=== PATIENT | male | born 1950 | race Caucasian/White ===

== ENCOUNTER 2024-02-01 01:29 | Inpatient (IN) ==
--- NOTE | 2024-02-01 02:11 | Emergency Department Note ---
Impression & Plan Chest pain, Elevated troponin, NSTEMI (non-ST elevated myocardial infarction) ED Provider Note ED Provider Note NAME: GRETCHEN JC AGE:73 SEX: Male : 1950 ARRIVES VIA: private vehicle INFORMANT: Patient ED PROVIDER(s): Mally Rivas DO CHIEF COMPLAINT: Chest tightness HPI: This is a 73-year-old male presents emergency department due to concern for chest tightness which began this evening between 7 and 730. He states he feels a sense of tightness across the chest radiating up into the left side of the neck and jaw as well as down the left upper extremity. No radiation into the back. He states he was slightly nauseated and did feel short of breath. He states he feels better laying down, worse sitting up, although did not notice any significant worsening pain with ambulation or movement. He denies any recent change in activity, recent illness or URI symptoms, fevers or chills. No recent change in any medications. No history of heart or lung problems. No prior similar episodes of pain. No other treatment at home prior to arrival. He denies any recent increased GERD/heartburn type symptoms. Patient states 2 [address] they [address] drive to [place] although states he and family stopped frequently for bathroom breaks and to get gas. PAST MEDICAL HISTORY:See Below PAST SURGICAL HISTORY:See Below FAMILY HISTORY:See Below SOCIAL HISTORY:See Below HOME MEDICATIONS:See Below ALLERGIES:See Below VITALS:See Below PHYSICAL EXAMINATION: GENERAL: alert, well appearing, well nourished, no distress, non-toxic EYE EXAM: normal conjunctiva, PERRL and EOM's grossly intact OROPHARYNX: no exudate, no erythema, lips, buccal mucosa, and tongue normal and mucous membranes are moist NECK: supple, no nuchal rigidity, no adenopathy, non-tender LUNGS: Clear to auscultation. Normal chest wall mechanics, no w/r/r HEART: no murmurs, S1 normal and S2 normal, no reproducible pain with palpation ABDOMEN: abdomen soft, non-tender, normo-active bowel sounds, no masses, no rebound or guarding. SKIN: no rashes, petechiae, orbruising UPPER EXTREMITIES: upper extremities are grossly normal. FROM, nml pulses b/l. LOWER EXTREMITIES: No pitting edema. FROM, nml pulses b/l. Negative Homans' sign. NEURO EXAM: Normal sensorium, cranial nerves II-XII grossly intact, normal speech, no facial droop,nogross weakness of arms, no gross weakness of legs. Gross sensation intact. No ataxia. Vital Signs: reviewed and remarkable Differential Diagnosis: acute coronary syndrome, pericarditis, pulmonary embolus, aortic dissection, pneumonia, pneumothorax, musculoskeletal pain, shingles, GERD, GI bleed, as well as others were considered MEDICAL DECISION MAKING: This is a 73 yo male who presents to the ER with concern for chest pain. No prior similar episodes and no hx of heart problems. He was afebrile and VS stable. Labs drawn and sent, IV established, EKG and CXR performed and interpreted at bedside, and patient placed on telemetry. He was given gentle IVF, nitropaste, IV zofran, IV tyenol and reported improvement but lingering sense of tightness. IV morphine aded. INitial troponin mildly elevated. Other labs reassuring. No acute EKG changes and no findings on CXR. Given concern for symptoms and presentation, we discussed additional inpatient evaluation and he was agreeable. Case discussed with the hospitalist for additional evaluation and mgmt. Repeat troponin pending at the time of our discussion. I do not suspect occult infectious etiology at this time. I do not suspect acute vascular emergency. Consultation(s): 0440: Discussed with Dr. Momin for additional evaluation and mgmt. Repeat troponin pending at time of discussion. ER Treatment Provided: See below Diagnostics Interpreted By Me: -ECG: Normal sinus at 70, first-degree AV block, normal axis, normal intervals, no acute ST/T wave changes -Cardiac Monitoring: An order was placed for continuous cardiac monitoring. The monitor shows a rate of 70 with normal sinus rhythm. -Laboratory studies: As stated above and show below. -Imaging studies: X-ray Chest: A single view study of the chest was reviewed and was negative for cardiomegaly, focal infiltrate, effusion, pulmonary edema, or wide mediastinum. Triage Nursing Note Reviewed Prior/Outside Records Reviewed Past Med/Surg History Problem List (Updated 02/02/24 @ 02:41 by Mally Rivas DO) Single kidney NSTEMI (non-ST elevated myocardial infarction) (Acute) Elevated troponin (Acute) Chest pain (Acute) Carpal tunnel syndrome on both sides Social History Smoking Status: Never smoker Hx Alcohol Use: No Hx Substance Use: No Preferred Language: Arabic Communication Ability: Effective Art Professor Required: No Beliefs That Will Affect Care: None Current Living Situation: Spouse Other Information That Helps Us Care for You: No Feels Safe at Home: Yes Safety Concerns: Feels Safe At This Time Assistive Devices: None Allergies Allergies Allergy/AdvReac Type Severity Reaction Status Date / Time Penicillins AdvReac Anaphylaxis Verified 02/01/24 02:19 Home Meds Home Medications Medication Instructions Recorded Confirmed acetaminophen 500 mg tablet 500 mg PO AMHS 02/01/24 02/01/24 flaxseed oil 1,000 mg capsule 1,000 mg PO AMPM 02/01/24 02/01/24 multivitamin 1 tab PO DAILY 02/01/24 02/01/24 omega 4-oes-ddh-fish oil 1,000 mg 1 cap PO AMPM 02/01/24 02/01/24 (120 mg-180 mg) capsule (Fish Oil) Results & Data (ED) Vital Signs Vital Signs - 24 hr 02/01/24 03:06 02/01/24 04:00 02/01/24 04:36 Pulse Rate 63 54 L 66 Pulse Rate from SpO2 Sensor 64 55 L 65 Respiratory Rate 12 15 17 Blood Pressure 127/78 119/70 131/82 Blood Pressure Mean 94 86 98 Pulse Oximetry 95 93 94 Oxygen Delivery Method Room Air Room Air Laboratory Data 02/02/24 01:10 02/02/24 01:10 Lab Results 02/01/24 02/01/24 Range/Units 02:08 03:52 WBC 4.62 L (4.8-10.8) K/ul RBC 5.10 (4.70-6.10) M/uL Hgb 14.9 (14.0-18.0) g/dl Hct 42.7 (42.0-52.0) % MCV 83.7 (80.0-100.0) fL MCH 29.2 (25.0-34.0) pg MCHC 34.9 (32.0-36.0) g/dL RDW Std Deviation 40.2 (36.4-46.3) fL RDW Coeff of Barbara 13.2 (11.5-14.5) % Plt Count 213 (130-400) K/uL MPV 9.0 L (9.4-12.4) fL Immature Gran % (Auto) 0.4 % Neut % (Auto) 51.8 % Lymph % (Auto) 36.6 % [place] % (Auto) 8.0 % Eos % (Auto) 2.6 % Baso % (Auto) 0.6 % Neut # (Auto) 2.39 (1.40-6.50) K/uL Lymph # (Auto) 1.69 (1.20-3.40) K/uL [place] # (Auto) 0.37 (0.11-0.59) K/uL Eos # (Auto) 0.12 (0.00-0.50) K/uL Baso # (Auto) 0.03 (0.00-0.20) K/uL Immature Gran # (Auto) 0.02 (0.01-0.20) K/uL APTT 27 (21-31) Seconds PTT Ratio 1.0 D-Dimer 370 (0-500) ug/L FEU Sodium 138 (136-145) mmol/L Potassium 4.0 (3.5-5.1) mmol/L Chloride 107 (98-107) mmol/L Carbon Dioxide 23 (21-32) mmol/L Anion Gap 8 (3-11) BUN 28 H (6-23) mg/dl Creatinine 1.47 H (0.6-1.4) mg/dl Est Cr Clr Drug Dosing 55.1 ml/min eGFR 50.05 BUN/Creatinine Ratio 19.0 (10-20) Glucose 106 H (70-99(Fasting)) mg/dl Calcium 9.1 (8.6-10.3) mg/dl Magnesium 1.6 L (1.7-2.4) mg/dl Total Bilirubin 0.6 (0.2-1.0) mg/dl AST 21 (13-39) U/L ALT 16 (7-52) U/L Alkaline Phosphatase 31 L (34-104) U/L Troponin I High Sens 35.7 H 395.3 H* D (0-20) pg/ml Total Protein 6.3 (6.0-8.3) gm/dl Albumin 3.9 (3.4-5.0) gm/dl Globulin 2.4 L (2.5-4.0) gm/dl Albumin/Globulin Ratio 1.6 (0.9-2) Lipase 83 H (11-82) U/L TSH 2.267 (0.300-4.500) uIu/ml Administered Medications Acetaminophen (Acetaminophen 325 Mg Tab) 650 mg PO QID PRN PRN Reason: pain/fever Stop: 03/02/24 05:21 Last Admin: 02/01/24 20:16 Dose: 650 mg Documented By: TRAVIS Atorvastatin Calcium (Atorvastatin 40 Mg Tab) 40 mg PO QAM [facility] Stop: 03/02/24 05:24 Last Admin: 02/01/24 08:07 Dose: 40 mg Documented By: JOSE F Heparin Sodium/Dextrose (Heparin Sodium/Dextrose) 25,000 units in 500 mls @ 0 mls/hr IV .Q0M [facility]; Protocol Stop: 03/02/24 05:14 Last Titration: 02/02/24 02:19 Dose: 0 units/hr, 0 mls/hr Documented By: TRAVIS Co-signed By: [id number] Admin: 02/01/24 21:38 Dose: 1,550 units/hr, 31 mls/hr Documented By: TRAVIS Co-signed By: SARAH BETH Titration: 02/01/24 21:38 Dose: Infused Documented By: TRAVIS Co-signed By: MMD Titration: 02/01/24 18:58 Dose: 1,550 units/hr, 31 mls/hr Documented By: JOSE F Co-signed By: TRAVIS Titration: 02/01/24 13:37 Dose: 1,550 units/hr, 31 mls/hr Documented By: JOSE F Co-signed By: GG Titration: 02/01/24 06:37 Dose: 1,550 units/hr, 31 mls/hr Documented By: TRAVIS Co-signed By: KRT Admin: 02/01/24 05:59 Dose: 1,550 units/hr, 31 mls/hr Documented By: MARCELINO Co-signed By: SHANAE Metoprolol Tartrate (Metoprolol Tartrate 25 Mg Tab) 12.5 mg PO BID HARRIET Stop: 03/02/24 20:59 Last Admin: 02/01/24 20:11 Dose: 12.5 mg Documented By: TRAVIS Discontinued Medications Aspirin (Aspirin 81 Mg Ectab) 81 mg PO NOW STA Stop: 02/01/24 04:47 Last Admin: 02/01/24 05:31 Dose: 81 mg Documented By: MARCELINO Heparin Sodium/Dextrose (Heparin Iv Adult Wt-Based Standard *No* Initial Bolus Protocol) 1 each IV ONE STA; Protocol Stop: 02/01/24 04:48 Last Admin: 02/01/24 06:37 Dose: Not Given Documented By: TRAVIS Acetaminophen (Ofirmev) 1,000 mg in 100 mls @ 400 mls/hr IV NOW STA Stop: 02/01/24 02:19 Last Infusion: 02/01/24 03:59 Dose: Infused Documented By: Admin: 02/01/24 02:20 Dose: 400 mls/hr Documented By: MARCELINO Sodium Chloride (Nss) 1,000 mls @ 75 mls/hr IV .[id number] STA Stop: 02/01/24 18:15 Last Infusion: 02/01/24 15:17 Dose: Infused Documented By: JOSE F Admin: 02/01/24 06:46 Dose: 75 mls/hr Documented By: TRAVIS Metoprolol Tartrate (Metoprolol Tartrate 25 Mg Tab) 12.5 mg PO NOW STA Stop: 02/01/24 04:48 Last Admin: 02/01/24 05:57 Dose: Not Given Documented By: MARCELINO Morphine Sulfate (Morphine Sulfate 2 Mg/Ml Carp) 2 mg IV NOW STA Stop: 02/01/24 04:38 Last Admin: 02/01/24 04:56 Dose: 2 mg Documented By: MARCELINO Nitroglycerin (Nitroglycerin 2% Ointment 30gm Tube) 1 inch EXT NOW STA Stop: 02/01/24 02:06 Last Admin: 02/01/24 02:25 Dose: 1 inch Documented By: MARCELINO Ondansetron HCl (Ondansetron Inj 2 Mg/Ml 2 Ml Vial) 4 mg IV NOW STA Stop: 02/01/24 02:06 Last Admin: 02/01/24 02:20 Dose: 4 mg Documented By: MARCELINO Imaging Data Radiologist's Impression: Chest X-Ray 02/01/24 02:05 EXAM: XR chest 1V portable CLINICAL HISTORY: CHEST PAIN F TECHNIQUE: Portable radiograph of chest was acquired. COMPARISON: None. FINDINGS: The lungs are clear and well-expanded with no pulmonary infiltrate or pleural effusion. The cardiomediastinal silhouette is within normal limits. No acute osseous abnormality. Chest wall leads are noted. IMPRESSION: 1. No acute cardiopulmonary disease Electronically signed by Hector Connor 02-01-2024 03:53 AM Discharge Plan Visit Data Chief Complaint: Chest Pain Stated Complaint: CHEST PAIN INTO LT ARM ED Provider: Mally Rivas Discharge Problem: Chest pain, Elevated troponin, NSTEMI (non-ST elevated myocardial infarction) Patient Disposition: Admitted As Inpatient Discharge Instructions Interventions: ED Discharge Assessment Last Done: 02/01/24 05:50
[2024-02-01] MEDS: ONDANSETRON INJ 2 MG/ML 2 ML VIAL IV STA (02:20)
[2024-02-01] MEDS: ACETAMINOPHEN 1,000 MG/100 ML VIAL IV STA (02:20)
[2024-02-01 02:21] LABS: Basophils # (auto) 0.03 K/uL (0.00-0.20); Basophils % (auto) 0.6 %; Eosinophils # (auto) 0.12 K/uL (0.00-0.50); Eosinophils % (auto) 2.6 %; Hematocrit (blood only) 42.7 % (42.0-52.0); Hemoglobin 14.9 g/dl (14.0-18.0); Immature Granulocytes # (auto) 0.02 K/uL (0.01-0.20); Immature Granulocytes % (auto) 0.4 %; Lymphocytes # (auto) 1.69 K/uL (1.20-3.40); Lymphocytes % (auto) 36.6 %; Mean Corpuscular Hemoglobin 29.2 pg (25.0-34.0); Mean Corpuscular Hgb Conc 34.9 g/dL (32.0-36.0); Mean Corpuscular Volume 83.7 fL (80.0-100.0); Monocytes # (auto) 0.37 K/uL (0.11-0.59); Neutrophils # (auto) 2.39 K/uL (1.40-6.50); Neutrophils % (auto) 51.8 %; Platelet Count 213 K/uL (130-400); RDW Coefficient of Variation 13.2 % (11.5-14.5); RDW Standard Deviation 40.2 fL (36.4-46.3); White Blood Count 4.62 K/ul (4.8-10.8)
[2024-02-01] MEDS: NITROGLYCERIN 2% OINTMENT 30GM TUBE EXT STA (02:25)
[2024-02-01 02:39] LABS: Albumin Globulin Ratio 1.6 (0.9-2); Albumin Level 3.9 gm/dl (3.4-5.0); Bilirubin,Total 0.6 mg/dl (0.2-1.0); Calcium 9.1 mg/dl (8.6-10.3); Creatinine Clr Calc Pharmacy 55.1 ml/min; Globulin 2.4 gm/dl (2.5-4.0); Total Protein 6.3 gm/dl (6.0-8.3)
[2024-02-01 02:44] LABS: Troponin I High Sensitivity 35.7 pg/ml (0-20)
[2024-02-01 02:51] LABS: D Dimer 370 ug/L FEU (0-500)
--- NOTE | 2024-02-01 03:54 | XRay Report ---
EXAM: XR chest 1V portable CLINICAL HISTORY: CHEST PAIN J[facility] TECHNIQUE: Portable radiograph of chest was acquired. COMPARISON: None. FINDINGS: The lungs are clear and well-expanded with no pulmonary infiltrate or pleural effusion. The cardiomediastinal silhouette is within normal limits. No acute osseous abnormality. Chest wall leads are noted. IMPRESSION: 1. No acute cardiopulmonary disease Electronically signed by Hector Connor 02-01-2024 03:53 AM
[2024-02-01 04:45] LABS: Troponin I High Sensitivity 395.3 pg/ml (0-20)
--- NOTE | 2024-02-01 04:46 | History & Physical Report ---
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 in anticipation of ischemic workup Outpatient follow-up with Sleep Medicine for WALTER DVT prophylaxis. IV heparin Full code Total critical care time was 40 minutes. Text document was generated using [employer] voice recognition software. It may contain grammatical or spelling errors. Kindly contact undersigned for clarification of any documentation item in question. History of Present Illness Chief Complaint: Chest pain Primary Care Provider: Scott Soto History obtained from patient, family, and records. Medical history significant for hypertension, hyperlipidemia, CRI (baseline creatinine 1.5-1.6), history left nephrectomy (kidney donation), bronchial asthma, WALTER (CPAP noncompliance), past tobacco abuse. Yesterday, patient noted achy left-sided chest pain going to the neck jaw and upper arm without other symptoms. No recent trauma. Different from GERD. More intense pain noted in the early a.m. after he woke up. Chest pain improved with Nitropaste administration at the ER. 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 Allergies Allergy/AdvReac Type Severity Reaction Status Date / Time Penicillins AdvReac Anaphylaxis Verified 02/01/24 02:19 Home Medications Medication Instructions Recorded Confirmed Type acetaminophen 500 mg tablet 500 mg PO AMHS 02/01/24 02/01/24 History flaxseed oil 1,000 mg capsule 1,000 mg PO AMPM 02/01/24 02/01/24 History multivitamin 1 tab PO DAILY 02/01/24 02/01/24 History omega 1-qdp-vvr-fish oil 1,000 mg 1 cap PO AMPM 02/01/24 02/01/24 History (120 mg-180 mg) capsule (Fish Oil) Past Med/Surg History Problem List (Updated 02/01/24 @ 07:20 by Titi Aguirre MD) NSTEMI (non-ST elevated myocardial infarction) Elevated troponin (Acute) Chest pain (Acute) Carpal tunnel syndrome on both sides Social History Smoking Status: Never smoker Hx Alcohol Use: No Hx Substance Use: No Preferred Language: Kiswahili Communication Ability: Effective Information Management Manager Required: No Beliefs That Will Affect Care: None Current Living Situation: Spouse Other Information That Helps Us Care for You: No Feels Safe at Home: Yes Safety Concerns: Feels Safe At This Time Assistive Devices: None Review of Systems Review of Systems: As per HPI, all other systems reviewed and negative Physical Exam Physical Exam: GENERAL: Comfortable, pleasant, obese, no respiratory distress SKIN: Normal color, warm HEENT: [place] palpebral conjunctivae, no ptosis, moist buccal mucosa NECK : Supple, no tenderness CHEST : CTA, no tenderness HEART : RRR, no obvious murmurs ABDOMEN: Some distention, nontender EXTREMITIES : No LE swelling/tenderness, no other conspicuous deformities noted NEUROLOGIC : Coherent, no facial asymmetry, no other gross focality Results & Data Results & Data Vital Signs (Past 12 Hours) Vital Signs Temp Pulse Resp BP Pulse Ox O2 Del Method 02/01/24 03:06 63 12 127/78 95 02/01/24 02:21 69 15 124/77 94 02/01/24 02:05 96 Room Air 02/01/24 01:40 67 02/01/24 01:31 36.4 C L 88 18 171/102 H 96 Room Air Laboratory Results Laboratory Results WBC 4.62 K/ul (4.8-10.8) L 02/01/24 02:08 RBC 5.10 M/uL (4.70-6.10) 02/01/24 02:08 Hgb 14.9 g/dl (14.0-18.0) 02/01/24 02:08 Hct 42.7 % (42.0-52.0) 02/01/24 02:08 MCV 83.7 fL (80.0-100.0) 02/01/24 02:08 MCH 29.2 pg (25.0-34.0) 02/01/24 02:08 MCHC 34.9 g/dL (32.0-36.0) 02/01/24 02:08 RDW Std Deviation 40.2 fL (36.4-46.3) 02/01/24 02:08 RDW Coeff of Barbara 13.2 % (11.5-14.5) 02/01/24 02:08 Plt Count 213 K/uL (130-400) 02/01/24 02:08 MPV 9.0 fL (9.4-12.4) L 02/01/24 02:08 Immature Gran % (Auto) 0.4 % 02/01/24 02:08 Neut % (Auto) 51.8 % 02/01/24 02:08 Lymph % (Auto) 36.6 % 02/01/24 02:08 [place] % (Auto) 8.0 % 02/01/24 02:08 Eos % (Auto) 2.6 % 02/01/24 02:08 Baso % (Auto) 0.6 % 02/01/24 02:08 Neut # (Auto) 2.39 K/uL (1.40-6.50) 02/01/24 02:08 Lymph # (Auto) 1.69 K/uL (1.20-3.40) 02/01/24 02:08 [place] # (Auto) 0.37 K/uL (0.11-0.59) 02/01/24 02:08 Eos # (Auto) 0.12 K/uL (0.00-0.50) 02/01/24 02:08 Baso # (Auto) 0.03 K/uL (0.00-0.20) 02/01/24 02:08 Immature Gran # (Auto) 0.02 K/uL (0.01-0.20) 02/01/24 02:08 D-Dimer 370 ug/L FEU (0-500) 02/01/24 02:08 Sodium 138 mmol/L (136-145) 02/01/24 02:08 Potassium 4.0 mmol/L (3.5-5.1) 02/01/24 02:08 Chloride 107 mmol/L (98-107) 02/01/24 02:08 Carbon Dioxide 23 mmol/L (21-32) 02/01/24 02:08 Anion Gap 8 (3-11) 02/01/24 02:08 BUN 28 mg/dl (6-23) H 02/01/24 02:08 Creatinine 1.47 mg/dl (0.6-1.4) H 02/01/24 02:08 Est Cr Clr Drug Dosing 55.1 ml/min 02/01/24 02:08 eGFR 50.05 02/01/24 02:08 BUN/Creatinine Ratio 19.0 (10-20) 02/01/24 02:08 Glucose 106 mg/dl (70-99(Fasting)) H 02/01/24 02:08 Calcium 9.1 mg/dl (8.6-10.3) 02/01/24 02:08 Total Bilirubin 0.6 mg/dl (0.2-1.0) 02/01/24 02:08 AST 21 U/L (13-39) 02/01/24 02:08 ALT 16 U/L (7-52) 02/01/24 02:08 Alkaline Phosphatase 31 U/L (34-104) L 02/01/24 02:08 Troponin I High Sens 395.3 pg/ml (0-20) H* D 02/01/24 03:52 Total Protein 6.3 gm/dl (6.0-8.3) 02/01/24 02:08 Albumin 3.9 gm/dl (3.4-5.0) 02/01/24 02:08 Globulin 2.4 gm/dl (2.5-4.0) L 02/01/24 02:08 Albumin/Globulin Ratio 1.6 (0.9-2) 02/01/24 02:08 Lipase 83 U/L (11-82) H 02/01/24 02:08 Impressions Chest X-Ray 02/01/24 02:05 EXAM: XR chest 1V portable CLINICAL HISTORY: CHEST PAIN [facility] TECHNIQUE: Portable radiograph of chest was acquired. COMPARISON: None. FINDINGS: The lungs are clear and well-expanded with no pulmonary infiltrate or pleural effusion. The cardiomediastinal silhouette is within normal limits. No acute osseous abnormality. Chest wall leads are noted. IMPRESSION: 1. No acute cardiopulmonary disease Electronically signed by Hector Connor 02-01-2024 03:53 AM Diagnostic Findings EKG as per my interpretation : Rate 70, NSR, LAD, LAFB, 1 AVB, T wave flattening septal leads
[2024-02-01] MEDS: MoRPHine SULFATE 2 MG/ML CARP IV STA (04:56)
[2024-02-01] MEDS ORDERED: oxyCODONE HCL IR 5 MG TAB (IMMEDIATE RELEASE) PO PRN (05:22)
[2024-02-01] MEDS ORDERED: HYDROmorphone INJ 0.5 MG/0.5 ML SYR IV PRN (05:23)
[2024-02-01] MEDS ORDERED: PROMETHAZINE 6.25 MG/50.25 ML BAG IV PRN (05:23)
[2024-02-01 05:30] LABS: Partial Thromboplastin Time 27 Seconds (21-31)
[2024-02-01] MEDS: ASPIRIN 81 MG ECTAB PO STA (05:31)
[2024-02-01 05:41] LABS: Magnesium 1.6 mg/dl (1.7-2.4)
[2024-02-01] MEDS: METOPROLOL TARTRATE 25 MG TAB PO STA (05:57)
[2024-02-01] MEDS: HEPARIN SODIUM/DEXTROSE 25,000 UNITS/500 ML BAG IV SCH (05:59)
[2024-02-01] MEDS: Heparin IV Adult Wt-Based Standard *NO* INITIAL Bolus Protocol IV STA (06:37)
[2024-02-01 06:43] LABS: Thyroid Stimulating Hormone 2.267 uIu/ml (0.300-4.500)
[2024-02-01] MEDS: SODIUM CHLORIDE 0.9% 1,000 ML IV STA (06:46)
[2024-02-01] MEDS: ATORVASTATIN 40 MG TAB PO SCH (08:07)
--- NOTE | 2024-02-01 10:19 | Electrocardiogram Report ---
Test Reason : Blood Pressure : */* mmHG Vent. Rate : 70 BPM Atrial Rate : 70 BPM P-R Int : 214 ms QRS Dur : 92 ms QT Int : 388 ms P-R-T Axes : 33 -6 34 degrees QTcB Int : 419 ms Sinus rhythm with sinus arrhythmia with 1st degree A-V block Otherwise normal ECG No previous ECGs available Confirmed by Solo Moreno ([id number]) on 02/01/2024 10:19:32 AM Referred By: REFERRED SELF Confirmed By: Solo Moreno
--- NOTE | 2024-02-01 12:37 | Electrocardiogram Report ---
Test Reason : Blood Pressure : */* mmHG Vent. Rate : 58 BPM Atrial Rate : 58 BPM P-R Int : 206 ms QRS Dur : 92 ms QT Int : 444 ms P-R-T Axes : 27 -11 100 degrees QTcB Int : 435 ms Sinus bradycardia T-wave inversion in Lateral leads , consider ischemia Abnormal ECG When compared with ECG of 01-Feb-2024 01:36, T-wave inversion in Lateral leads now present Confirmed by Solo Moreno ([id number]) on 02/01/2024 12:37:13 PM Referred By: REFERRED SELF Confirmed By: Solo Moreno
--- OUTSIDE RECORDS SUMMARY | 2024-02-01 15:00 | External Medical Summary | Continuity of Care Document ---
Author Name Unknown Organization [facility] Address [facility], [address] [place] [address] Phone [phone] Care Team Providers Care Elephant Tamer Name Role Phone Edvin Khan MD Care Team Information Receive r [phone] Problems Active Problems Provider Date Mixed hyperlipidemia Doron Linares PA-C Onset: 0 05/05/2011 Renal failure syndrome Tiffanie Mohr MD, PhD Onset: 03/02/2015 Hyperkalemia Scott Soto JR DO Onset: 06/17/2020 Abnormal glucose level Scott Soto JR, DO Onset: 06/17/2020 Chronic kidney disease stage 3 Scott Soto JR, DO Onset: 04/19/2022 Hyperglycemia Scott Soto JR, DO Onset: 04/24/2023 Social History Type Date Description Comments Sex Unknown Tobacco Use Reviewed: 10/30/23 Never Smoked Cigarette s Smoking Status Reviewed: 10/30/23 Never Smoked Cigaret arturo Tobacco Use Reviewed: 10/30/23 Never Smoked Cigars Tobacco Use Reviewed: 10/30/23 Never Smoked A Pipe Smokeless Tobacco 10/30/2023 Never Used Smokeless To bacco ETOH Use Denies alcohol use Recreational Drug Use Denies Drug Use Allergies and adverse reactions Active Allergies Criticality Reaction | Severity Comments Date Penicillin Unable to assess criticality Medications Active Medications SIG Qnty Indications Ordering Provider Date Multi-Day VitaminsTablets 1 po qd otc Scott Soto JR DO 09/07/[id number] 2 po bid otc E78.2 Scott alegria JR, DO 03/08/2011 Flax Seed [id number] Capsules 1 by mouth every day Scott Soto JR, DO Immunizations CPT Code Status Date Vaccine Lot # [id number] Given 05/05/2011 Tdap (Tetanus, diphtheria & acel. pertussis) Adacel or Boostrix [id number] Refused 10/30/2023 Sarscov2 Vaccin e 50 mcg/0.5 ML For Im Use 12 Yrs And Older 23659 Refused 10/30/2023 Shingrix 67716 Refused 10/30/2023 Pneumococcal Conjugate-Pr evnar 20 78716 Refused 10/30/2023 Influenza Vaccine High Do se 0.5ML Age 65 & > 49256 Refused 10/19/2022 Moderna Sars-Co v-2 (Cov-19) vacc,100 mcg/ 0.5 mL 12Y+EMR Doc Only 89462 Refused 10/19/2022 Shingrix 97814 Refused 10/19/2022 Pneumococcal Conjugate-Pr evnar 20 74289 Refused 10/19/2022 Influenza Vaccine High Do se 0.5ML Age 65 & > 85037 Refused 10/04/2021 Moderna Sars-Co v-2 (Cov-19) vacc,100 mcg/ 0.5 mL 12Y+EMR Doc Only 17445 Refused 10/04/2021 Pneumococcal Conjugate-Pr evnar 13 20926 Refused 01/25/2021 Influenza Virus Vaccine, Quadrivalent (Cciiv4), Derived From Cell 86443 Refused 01/25/2021 Shingrix 95443 Refused 01/25/2021 Pneumococcal Conjugate-Pr evnar 13 96094 Refused 01/25/2021 Influenza Vaccine High Do se 0.5ML Age 65 & > 48923 Refused 06/08/2020 Moderna Sars-Co v-2 (Cov-19) vacc,100 mcg/ 0.5 mL 12Y+EMR Doc Only 60418 Refused 12/11/2019 Influenza Vaccine High Do se 0.5ML Age 65 & > 82649 Refused 12/11/2019 Shingrix 54716 Refused 12/02/2018 Pneumococcal Conjugate-Pr evnar 13 99471 Refused 12/02/2018 Influenza Virus Vaccine, Quadrivalent, Im Use 82952 Refused 12/02/2018 Shingrix 60439 Refused 04/24/2018 Pneumococcal Vaccine/Pneu movax 23 87403 Refused 04/24/2018 Pneumococcal Conjugate-Pr evnar 13 64829 Refused 11/28/2017 Influenza Virus Vaccine, Quadrivalent, [place] Use 22459 Refused 11/28/2017 Pneumococcal Conjugate-Pr evnar 13 12220 Refused 10/22/2017 Shingrix 58565 Refused 10/22/2017 Pneumococcal Conjugate-Pr evnar 13 57902 Refused 04/17/2017 Zostavax-PT Supplied 29066 Refused 12/07/2016 Influenza Vac, Split, Preservative Free High Dose Age 65 & > 49319 Refused 12/08/2015 Influenza Virus Vaccine, Quadrivalent, [place] Use 34505 Refused 09/06/2015 Pneumococcal Conjugate-Pr evnar 13 97844 Refused 03/08/2015 Influenza Virus Vaccine, Quadrivalent, [place] Use 52597 Refused 03/02/2015 Influenza Virus Vaccine, Quadrivalent, Im Use 93718 Refused 03/02/2015 Pneumococcal Vaccine/Pneu movax 23 60347 Refused 12/29/2013 Influenza Vac, Split 6 Mo nths And Older 97201 Refused 12/12/2012 Influenza Vac, Split 6 Mo nths And Older 22338 Refused 01/22/2012 Influenza Vac, Split 6 Mo nths And Older Vital Signs Date Vital Result Comment 10/30/2023 7:52am BP Systolic 112 mmHg BP Diastolic 70 mmHg Body Temperature 97.7 F Heart Rate 66 /min Respiratory Rate 16 /min Weight 232.00 lb Weight 105.235 kg 04/24/2023 8:57am BP Systolic 122 mmHg BP Diastolic 78 mmHg Body Temperature 97.8 F Heart Rate 92 /min Respiratory Rate 16 /min Weight 235.00 lb Weight 106.596 kg Height 67.75 inches 5'7.75" BMI (Body Mass Index) 36.0 kg/m2 [place] Body Weight 148 lb Results Test Acquired Date Facility Test Result H/L Range N ote BMP 10/18/2023 [facility] [address] [place] [address] Glucose 90 mg/dL 70-110 1 BUN 24 mg/dL 6-25 Creatinine 1.6 mg/dL High 0.7-1.3 Sodium 140 mEq/L 135-145 Potassium 4.9 mEq/L 3.5-5.0 Chloride 105 mEq/L 95-107 Co-2 23 mEq/L Low 24-31 Calcium 9.3 mg/dL 8.5-10.6 GFR 45 ML/MIN/1.73 SQM Low >60 Lipid 10/18/2023 [facility]. [address] [place] [address] Cholesterol 201 mg/dL High 0-200 2 Triglyceride 235 mg/dL High 0-150 3 HDLD 33 mg/dL See Comment 4 Measured LDL 119 mg/dL 0-130 5 Calc VLDL 47.0 mg/dL See Comment 6 Chol/HDL 6.1 RATIO See Comment 7 Non-HDL 168 mg/dL See Comment 8 Hepatic 10/18/2023 [facility]. 1 [place], [place] [id number] [phone] Alk Phos 36 IU/L Low 43-122 Alt(SGPT) 20 IU/L 10-40 Ast(Sgot) 18 IU/L 3-42 T.Bilirubin 0.8 mg/dL 0.1-1.3 D.Bilirubin 0.1 mg/dL 0.0-0.3 Tot.Protein 6.7 g/dL 5.8-8.0 Albumin 4.4 g/dL 3.0-5.2 TSH With Reflex 10/18/2023 [facility]. [address] [place], [place] [id number] [phone] TSH (Reflex) 3.83 uIU/mL 0.50-6.00 CBC W/Diff 10/18/2023 [facility] [address] [place] [address] WBC 6.1 10^3/M3 3.1-9.2 RBC 4.96 10^6/M3 4.00-5.80 HGB 14.6 GR/DL 12.5-17.5 HCT 42.6 % 37.5-52.5 MCV 85.9 CUMICR 82.6-95.8 MCH 29.5 PICOGR 27.9-32.9 MCHC 34.3 % 32.6-35.4 RDW 14.5 % 11.4-14.6 PLT 227 10^3/M3 140-350 MPV 7.6 CUMICR 7.0-10.6 %Neut 63.9 % 40.0-75.0 %Lymph 25.8 % 17.0-45.0 %Lamoure 7.0 % 1.0-11.0 %Eos 2.7 % 0.0-6.0 %Baso 0.6 % 0.0-2.0 #Neut 3.9 10^3/M3 1.5-8.0 #Lymph 1.6 10^3/M3 0.8-3.2 #Lamoure 0.4 10^3/M3 0.0-0.8 #Eos 0.2 10^3/m3 0.0-0.4 #Baso 0.0 10^3/m3 0.0-0.2 1 FASTING 2 CHOLESTEROL Less than 200mg/dl Low risk 201-239 mg/dl Borderline risk Equal to or greater 240mg/dl High risk 3 TRIGLYCERIDES Less than 150mg/dl Normal 150-199mg/dl Borderline 200-499mg/dl High Greater than 500mg/dl Very High 4 HDL <40mg/dl Elevated Risk 41-59mg/dl Risk >=60mg/dl Least Risk 5 LDL <100mg/dl Optimal 100-129mg/dl Near Optimal 130-159mg/dl Borderline High 160-189mg/dl High >=190 Very High 6 VLDL Less than 30mg/dl Normal 7 CHOL/HDL <4.0 Optimal 4.0-5.0 Borderline >6.0 High Risk 8 NON-HDL 30mg/dl higher than LDL Target Procedures Date Code Description Status 10/30/2023 G9920 Scrning Perf And Negative Co mpleted 10/30/2023 G2211 Continuation of care e/m vis it add on Completed 10/18/2023 45519 Venipuncture Routine Complet ed Medical Devices Description No Information Available Encounters Type Date Location Provider Dx Diagnosis Office Visit 10/30/2023 8:00a [place] Scott Soto JR, DO E78.2 Mixed hyperlipidemia R73.9 Hyperglycemia, unspe cified N19 Unspecified kidney f ailure G56.01 Carpal tunnel syndro me, right upper limb Assessments Date Code Description Provider 10/30/2023 E78.2 Mixed hyperlipidemia Scott Soto JR, DO 10/30/2023 R73.9 Hyperglycemia, unspecified K henrik Soto JR, DO 10/30/2023 N19 Unspecified kidney failure K henrik Soto JR, DO 10/30/2023 G56.01 Carpal tunnel syndrome, righ t upper limb Scott Soto JR, DO 10/18/2023 E78.2 Mixed hyperlipidemia Scott Soto JR, DO 10/18/2023 E78.2 Mixed hyperlipidemia Lab - [facility] Plan of Treatment Future Appointment(s):* 04/24/2024 8:00 am - [facility] - [facility] * 05/01/2024 8:00 am - Scott Soto JR, DO at [place] 10/30/2023 - Scott Soto JR, DO* E78.2 Mixed hyperlipidemia* New Labs:* BMP, Ordered: 10/30/23 * Lipid, Ordered: 10/30/23 * Hepatic, Ordered: 10/30/23 * TSH With Reflex, Ordered: 10/30/23 * CBC W/Diff, Ordered: 10/30/23 * R73.9 Hyperglycemia, unspecified * N19 Unspecified kidney failure * G56.01 Carpal tunnel syndrome, right upper limb* Referral:* [facility], Surgery,Orthopedic * All* Follow up:* Follow-up in 6 months with [facility] and labs or sooner as needed Functional Status Description No Information Available Mental Status Description No Information Available Referrals Refer to Dr Reason for Referral Status Appt [facility] right CTS, EMG already done Mackenzie eduled 11/27/2023 [address] [facility] [place] [id number] [phone]
--- OUTSIDE RECORDS SUMMARY | 2024-02-01 15:01 | External Medical Summary | Continuity of Care Document ---
Author Name Unknown Organization [facility] Address [address] [place] [address] Phone [phone] Care Team Providers Care Sexual Abuse Counsellor Name Role Phone Edvin Khan MD Care Team Information Receive r [phone] Problems Active Problems Provider Date Mixed hyperlipidemia Doron Linares PA-C Onset: 0 05/05/2011 Renal failure syndrome Tiffanie Mohr MD, PhD Onset: 03/02/2015 Hyperkalemia Scott Soto JR, DO Onset: 06/17/2020 Abnormal glucose level Scott Soto JR DO Onset: 06/17/2020 Chronic kidney disease stage 3 Scott Soto JR DO Onset: 04/19/2022 Hyperglycemia Scott Soto JR DO Onset: 04/24/2023 Social History Type Date Description Comments Sex Unknown Tobacco Use Reviewed: 04/24/23 Never Smoked Cigarette s Smoking Status Reviewed: 04/24/23 Never Smoked Cigaret arturo Tobacco Use Reviewed: 04/24/23 Never Smoked Cigars Tobacco Use Reviewed: 04/24/23 Never Smoked A Pipe Smokeless Tobacco 04/24/2023 Never Used Smokeless To bacco ETOH Use Denies alcohol use Recreational Drug Use Denies Drug Use Allergies and adverse reactions Active Allergies Criticality Reaction | Severity Comments Date Penicillin Unable to assess criticality Medications Active Medications SIG Qnty Indications Ordering Provider Date Multi-Day VitaminsTablets 1 po qd otc Scott Soto JR, DO 09/07/[id number] 2 po bid otc E78.2 Scott alegria JR, DO 03/08/2011 Flax Seed [id number] Capsules 1 by mouth every day Scott Soto JR, DO Immunizations CPT Code Status Date Vaccine Lot # [id number] Given 05/05/2011 Tdap (Tetanus, diphtheria & acel. pertussis) Adacel or Boostrix [id number] 88031 Refused 10/19/2022 Moderna Sars-Co v-2 (Cov-19) vacc,100 mcg/ 0.5 mL 12Y+EMR Doc Only 18697 Refused 10/19/2022 Shingrix 64602 Refused 10/19/2022 Pneumococcal Conjugate-Pr evnar 20 21562 Refused 10/19/2022 Influenza Vaccine High Do se 0.5ML Age 65 & > 05941 Refused 10/04/2021 Moderna Sars-Co v-2 (Cov-19) vacc,100 mcg/ 0.5 mL 12Y+EMR Doc Only 92982 Refused 10/04/2021 Pneumococcal Conjugate-Pr evnar 13 64090 Refused 01/25/2021 Influenza Virus Vaccine, Quadrivalent (Cciiv4), Derived From Cell 53600 Refused 01/25/2021 Shingrix 50320 Refused 01/25/2021 Pneumococcal Conjugate-Pr evnar 13 61813 Refused 01/25/2021 Influenza Vaccine High Do se 0.5ML Age 65 & > 39832 Refused 06/08/2020 Moderna Sars-Co v-2 (Cov-19) vacc,100 mcg/ 0.5 mL 12Y+EMR Doc Only 49332 Refused 12/11/2019 Shingrix 57103 Refused 12/11/2019 Influenza Vaccine High Do se 0.5ML Age 65 & > 10612 Refused 12/02/2018 Influenza Virus Vaccine, Quadrivalent, Im Use 99719 Refused 12/02/2018 Pneumococcal Conjugate-Pr evnar 13 99424 Refused 12/02/2018 Shingrix 93000 Refused 04/24/2018 Pneumococcal Vaccine/Pneu movax 23 62253 Refused 04/24/2018 Pneumococcal Conjugate-Pr evnar 13 61662 Refused 11/28/2017 Influenza Virus Vaccine, Quadrivalent, Im Use 19672 Refused 11/28/2017 Pneumococcal Conjugate-Pr evnar 13 23816 Refused 10/22/2017 Shingrix 27460 Refused 10/22/2017 Pneumococcal Conjugate-Pr evnar 13 13443 Refused 04/17/2017 Zostavax-PT Supplied 45882 Refused 12/07/2016 Influenza Vac, Split, Preservative Free High Dose Age 65 & > 29012 Refused 12/08/2015 Influenza Virus Vaccine, Quadrivalent, Im Use 80750 Refused 09/06/2015 Pneumococcal Conjugate-Pr evnar 13 04073 Refused 03/08/2015 Influenza Virus Vaccine, Quadrivalent, Im Use 06648 Refused 03/02/2015 Pneumococcal Vaccine/Pneu movax 23 83832 Refused 03/02/2015 Influenza Virus Vaccine, Quadrivalent, Im Use 94811 Refused 12/29/2013 Influenza Vac, Split 6 Mo nths And Older 63777 Refused 12/12/2012 Influenza Vac, Split 6 Mo nths And Older 99881 Refused 01/22/2012 Influenza Vac, Split 6 Mo nths And Older Vital Signs Date Vital Result Comment 04/24/2023 8:57am BP Systolic 122 mmHg BP Diastolic 78 mmHg Body Temperature 97.8 F Heart Rate 92 /min Respiratory Rate 16 /min Weight 235.00 lb Weight 106.596 kg Height 67.75 inches 5'7.75" BMI (Body Mass Index) 36.0 kg/m2 [place] Body Weight 148 lb 10/19/2022 7:51am BP Systolic 122 mmHg BP Diastolic 76 mmHg Heart Rate 80 /min Respiratory Rate 14 /min Weight 223.00 lb Weight 101.153 kg Results Test Acquired Date Facility Test Result H/L Range N ote BMP 10/18/2023 [facility] [address] [place], [place] [id number] Glucose 90 mg/dL 70-110 1 BUN 24 mg/dL 6-25 Creatinine 1.6 mg/dL High 0.7-1.3 Sodium 140 mEq/L 135-145 Potassium 4.9 mEq/L 3.5-5.0 Chloride 105 mEq/L 95-107 Co-2 23 mEq/L Low 24-31 Calcium 9.3 mg/dL 8.5-10.6 GFR 45 ML/MIN/1.73 SQM Low >60 Lipid 10/18/2023 [facility]. [address] [place] [address] Cholesterol 201 mg/dL High 0-200 2 Triglyceride 235 mg/dL High 0-150 3 HDLD 33 mg/dL See Comment 4 Measured LDL 119 mg/dL 0-130 5 Calc VLDL 47.0 mg/dL See Comment 6 Chol/HDL 6.1 RATIO See Comment 7 Non-HDL 168 mg/dL See Comment 8 Hepatic 10/18/2023 [facility]. [address] [place] [address] [phone] Alk Phos 36 IU/L Low 43-122 Alt(SGPT) 20 IU/L 10-40 Ast(Sgot) 18 IU/L 3-42 T.Bilirubin 0.8 mg/dL 0.1-1.3 D.Bilirubin 0.1 mg/dL 0.0-0.3 Tot.Protein 6.7 g/dL 5.8-8.0 Albumin 4.4 g/dL 3.0-5.2 TSH With Reflex 10/18/2023 [facility]. [address] [place], [place] [address] [phone] TSH (Reflex) 3.83 uIU/mL 0.50-6.00 CBC W/Diff 10/18/2023 [facility]. [address] [place], [place] [address] WBC 6.1 10^3/M3 3.1-9.2 RBC 4.96 10^6/M3 4.00-5.80 HGB 14.6 GR/DL 12.5-17.5 HCT 42.6 % 37.5-52.5 MCV 85.9 CUMICR 82.6-95.8 MCH 29.5 PICOGR 27.9-32.9 MCHC 34.3 % 32.6-35.4 RDW 14.5 % 11.4-14.6 PLT 227 10^3/M3 140-350 MPV 7.6 CUMICR 7.0-10.6 %Neut 63.9 % 40.0-75.0 %Lymph 25.8 % 17.0-45.0 %Swift 7.0 % 1.0-11.0 %Eos 2.7 % 0.0-6.0 %Baso 0.6 % 0.0-2.0 #Neut 3.9 10^3/M3 1.5-8.0 #Lymph 1.6 10^3/M3 0.8-3.2 #Swift 0.4 10^3/M3 0.0-0.8 #Eos 0.2 10^3/m3 0.0-0.4 [...] LDL Target Procedures Date Code Description Status 10/18/2023 89784 Venipuncture Routine Complet ed Medical Devices Description No Information Available Encounters Description No Information Available Assessments Date Code Description Provider 10/18/2023 E78.2 Mixed hyperlipidemia Scott Soto JR, DO 10/18/2023 E78.2 Mixed hyperlipidemia Lab - [facility] Plan of Treatment Future Appointment(s):* 10/30/2023 8:00 am - Scott Soto JR, DO at [place] 04/24/2023 - Scott Soto JR, DO* Z00.00 Encounter for general adult medical examination without abnormal findings * E78.2 Mixed hyperlipidemia * R73.9 Hyperglycemia, unspecified * N19 Unspecified kidney failure * R14.0 Bloating * All* Follow up:* Follow-up in 6 months or sooner as needed Functional Status Description No Information Available Mental Status Description No Information Available Referrals Description No Information Available
--- OUTSIDE RECORDS SUMMARY | 2024-02-01 15:01 | External Medical Summary ---
Author Name Unknown Address Unknown Organization K1C:[facility] [address] [place] [address] Laboratory Report Ordering Provider Test Date Status PRIMITIVO HER 10/18/2023 07:51 Final Observation Date Value Abnormality Reference (Units ) Status Alk Phos 10/18/2023 14:48 36 Below low normal 43-122 (IU/L) Final ALT (Alanine aminotransferase) 10/18/2023 14:48 20 10-40 (IU/L) Final AST (Aspartate aminotransferase) 10/18/2023 14:48 18 3-42 (IU/L) Final Bilirubin, Total 10/18/2023 14:48 0.8 0.1-1.3 (MG/DL) Final Bilirubin, Direct 10/18/2023 14:48 0.1 0.0-0.3 (MG/DL) Final Protein 10/18/2023 14:48 6.7 5.8-8.0 (G/DL) Final Albumin 10/18/2023 14:48 4.4 3.0-5.2 (G/DL) Final Performing Location [facility] [address] [place] [address]
--- OUTSIDE RECORDS SUMMARY | 2024-02-01 15:01 | External Medical Summary ---
Author Name Unknown Address Unknown Organization K1C:[facility] [address] [place] [address] Laboratory Report Ordering Provider Test Date Status PRIMITIVO HER 10/18/2023 07:51 Final Observation Date Value Abnormality Reference (Units ) Status Glucose 10/18/2023 14:48 90 70-110 (MG/DL ) Final BUN 10/18/2023 14:48 24 6-25 (MG/DL) Final Creatinine 10/18/2023 14:48 1.6 Above high normal 0.7- 1.3 (MG/DL) Final Sodium 10/18/2023 14:48 140 135-145 (MEQ/ L) Final Potassium 10/18/2023 14:48 4.9 3.5-5.0 (MEQ/ L) Final Cl 10/18/2023 14:48 105 95-107 (MEQ/L ) Final CO2 10/18/2023 14:48 23 Below low normal 24-31 (MEQ/L) Final Calcium 10/18/2023 14:48 9.3 8.5-10.6 (MG/ DL) Final GFR (estimated) 10/18/2023 14:48 45 Below low normal >60 (ML/MIN/1.73 SQM) Final Performing Location [facility] [address] [place] [address]
--- OUTSIDE RECORDS SUMMARY | 2024-02-01 15:01 | External Medical Summary ---
Author Name Unknown Address Unknown Organization [facility]:[address] [place] [address] Laboratory Report Ordering Provider Test Date Status PRIMITIVO HER 10/18/2023 07:51 Final Observation Date Value Abnormality Reference (Units ) Status Cholesterol 10/18/2023 14:48 201 Above high normal 0-2 00 (MG/DL) Final CHOLESTEROL
Less than 2 00mg/dl Low risk
201-239 mg/dl Borderline risk
Equal to or greater 240mg/dl High risk Triglyceride 10/18/2023 14:48 235 Above high normal 0- 150 (MG/DL) Final TRIGLYCERIDES
Less than 150mg/dl Normal
150-199mg/dl Borderline
200-499mg/dl High
Greater than 500mg/dl Very High HDL 10/18/2023 14:48 33 SEE COMMENT ( MG/DL) Final HDL
<40mg/dl Elevated R isk
41-59mg/dl Risk
>=60mg/dl Least Risk Cholesterol in LDL [Mass/vol ume] in Serum or Plasma 10/18/2023 14:48 119 0-130 (MG/DL) Final LDL
<100mg/dl Optimal<b r/> 100-129mg/dl Near Optimal
130-159mg/dl Borderline High
160-189mg/dl High
>=190 Very High Cholesterol in VLDL [Mass/vo lume] in Serum or Plasma 10/18/2023 14:48 47.0 SEE COMMENT (MG/DL ) Final VLDL
Less than 30mg/dl Normal HDL 10/18/2023 14:48 6.1 SEE COMMENT ( RATIO) Final CHOL/HDL
<4.0 Optimal<b r/> 4.0-5.0 Borderline
>6.0 High Risk NON-HDL 10/18/2023 14:48 168 SEE COMMENT ( MG/DL) Final NON-HDL
30mg/dl higher than LDL Target Performing Location [facility] [address] [place] [address]
--- OUTSIDE RECORDS SUMMARY | 2024-02-01 15:01 | External Medical Summary | Continuity of Care Document ---
Author Name Unknown Organization [facility] Address [address] [place] [address] Phone [phone] Care Team Providers Care History Faculty Member Name Role Phone Edvin Khan MD Care Team Information Receive r [phone] Problems Active Problems Provider Date Mixed hyperlipidemia [...] otc Scott Soto JR, DO 09/07/[id number] 2 po bid otc E78.2 Scott alegria JR, DO 03/08/2011 Flax Seed [id number] Capsules 1 by mouth every day Scott Soto JR, DO Immunizations CPT Code Status Date Vaccine Lot # [id number] Given 05/05/2011 Tdap (Tetanus, diphtheria & acel. pertussis) Adacel or Boostrix [id number] Refused 10/19/2022 Moderna Sars-Co v-2 (Cov-19) vacc,100 mcg/ 0.5 mL 12Y+EMR Doc Only 10229 Refused 10/19/2022 Shingrix 01045 Refused 10/19/2022 Pneumococcal Conjugate-Pr evnar 20 28142 Refused 10/19/2022 Influenza Vaccine High Do se 0.5ML Age 65 & > 97368 Refused 10/04/2021 Moderna Sars-Co v-2 (Cov-19) vacc,100 mcg/ 0.5 mL 12Y+EMR Doc Only 12786 Refused 10/04/2021 Pneumococcal Conjugate-Pr evnar 13 76062 Refused 01/25/2021 Influenza Virus Vaccine, Quadrivalent (Cciiv4), Derived From Cell 88020 Refused 01/25/2021 Shingrix 27221 Refused 01/25/2021 Pneumococcal Conjugate-Pr evnar 13 40176 Refused 01/25/2021 Influenza Vaccine High Do se 0.5ML Age 65 & > 02866 Refused 06/08/2020 Moderna Sars-Co v-2 (Cov-19) vacc,100 mcg/ 0.5 mL 12Y+EMR Doc Only 44881 Refused 12/11/2019 Shingrix 18418 Refused 12/11/2019 Influenza Vaccine High Do se 0.5ML Age 65 & > 46888 Refused 12/02/2018 Influenza Virus Vaccine, Quadrivalent, [place] Use 33923 Refused 12/02/2018 Pneumococcal Conjugate-Pr evnar 13 91599 Refused 12/02/2018 Shingrix 36896 Refused 04/24/2018 Pneumococcal Vaccine/Pneu movax 23 15086 Refused 04/24/2018 Pneumococcal Conjugate-Pr evnar 13 15560 Refused 11/28/2017 Influenza Virus Vaccine, Quadrivalent, Im Use 68378 Refused 11/28/2017 Pneumococcal Conjugate-Pr evnar 13 31662 Refused 10/22/2017 Shingrix 77951 Refused 10/22/2017 Pneumococcal Conjugate-Pr evnar 13 23289 Refused 04/17/2017 Zostavax-PT Supplied 00428 Refused 12/07/2016 Influenza Vac, Split, Preservative Free High Dose Age 65 & > 28232 Refused 12/08/2015 Influenza Virus Vaccine, Quadrivalent, Im Use 81003 Refused 09/06/2015 Pneumococcal Conjugate-Pr evnar 13 27793 Refused 03/08/2015 Influenza Virus Vaccine, Quadrivalent, Im Use 27757 Refused 03/02/2015 Pneumococcal Vaccine/Pneu movax 23 71458 Refused 03/02/2015 Influenza Virus Vaccine, Quadrivalent, Im Use 14208 Refused 12/29/2013 Influenza Vac, Split 6 Mo nths And Older 93879 Refused 12/12/2012 Influenza Vac, Split 6 Mo nths And Older 55909 Refused 01/22/2012 Influenza Vac, Split 6 Mo nths And Older Vital Signs Date Vital Result Comment 04/24/2023 8:57am BP Systolic 122 mmHg BP Diastolic 78 mmHg Body Temperature 97.8 F Heart Rate 92 /min Respiratory Rate 16 /min Weight 235.00 lb Weight 106.596 kg Height 67.75 inches 5'7.75" BMI (Body Mass Index) 36.0 kg/m2 [place] Body Weight 148 lb 10/19/2022 7:51am BP Systolic 122 mmHg BP Diastolic 76 mmHg Heart Rate 80 /min Respiratory Rate 14 /min Weight 223.00 lb Weight 101.153 kg Procedures Date Code Description Status 10/18/2023 99135 Venipuncture Routine Complet ed 04/24/2023 3725F Screening Depression Perform ed Completed 04/24/2023 1101F PT SCR Future Fall Risk, No Fall Or 1 W/Out Injury Completed Medical Devices Description No Information Available Encounters Type Date Location Provider Dx Diagnosis Office Visit [place]23 [place] Z00.00 Encntr for general adult medical exam w/o abnormal findings E78.2 Mixed hyperlipidemia R73.9 Hyperglycemia, unspe cified N19 Unspecified kidney f ailure R14.0 Abdominal distension (gaseous) Assessments Date Code Description Provider 10/18/2023 E78.2 Mixed hyperlipidemia Lab - [place] 04/24/2023 Z00.00 Encounter for ge neral adult medical examination without abnormal findings Scott Soto JR, DO 04/24/2023 E78.2 Mixed hyperlipidemia Scott Soto JR, DO 04/24/2023 R73.9 Hyperglycemia, unspecified K henrik Soto JR, DO 04/24/2023 N19 Unspecified kidney failure K henrik Soto JR, DO 04/24/2023 R14.0 Bloating Scott katz JR DO Plan of Treatment Future Appointment(s):* 10/30/2023 8:00 am - Scott Soto JR, DO at [place] 04/24/2023 - Scott Soto JR, DO* Z00.00 [...]
--- OUTSIDE RECORDS SUMMARY | 2024-02-01 15:01 | External Medical Summary | Summary of Care ---
Author Name Unknown Organization [facility] Address [address] [facility] [address] Phone [phone] Care Team Providers Care Sales Representative Printing Name Role Phone Brittany Duenas DO, Kenneth Primary Care Provider [phone] Encounter Details Date Type Department Care Team (Late st Contact Info) Description 10/18/2023 Orders Only Unspecified Department Scott Stoo Jr., DO [address] [facility] [address] Allergies Active Allergy Reactions Criticality Noted Date Comments Penicillins Edema face/lips/tongue,Hives High 2010 documented as of this encounter (statuses as of 10/18/2023) Medications Medication Sig Dispensed Refills Start Date End Date Status MULTI-VITAMIN PO TABS daily Active FISH OIL 1000 MG PO CAPS daily Active ACETAMINOPHEN 500 MG PO CAPS 1 daily Active TRIAMCINOLONE ACETONIDE 0.1 % EX OINTIndications:Derm atitis,Lichenificati on Apply twice daily to rashes 80 g 11 11/25/2013 Active Additional Information Patient not taking.Reported on 02/04/2019 Flaxseed, Linseed, (FLAX SEED OIL) 1000 MG Capsule Take 1 Capsule by mouth in the morning. 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 Cyst L Face 02/15/2011 Dermatitis 02/15/2011 Lichenification 02/15/2011 S/P LEFT NEPHRECTOMY kidney Donation 05/02/2010 documented as of this encounter (statuses as of 10/18/2023) Resolved Problems Problem Noted Date Diagnosed Date Resolved Date Kidney disease, chronic, sta ge III (GFR 30-59 ml/min) 05/02/2010 05/03/2022 Overview: Per CKD protocol documented as of this encounter (statuses as of 10/18/2023) Social History Tobacco Use Types Packs/Day Years Used Date Smoking Tobacco: Former Cigarettes 2.5 5 0 03/19/1969 - 03/19/1974 Smokeless Tobacco: Former Chew Quit: 03/19/1982 Comments:quit 1969 Alcohol Use Standard Drinks/Week Comments No 0 (1 standard drink = 0.6 oz pur e alcohol) Sex and Gender Information Value Date Recorded Sex Assigned at Not on file Gender Identity Not on file Sexual Orientation Not on file Job Start Date Occupation Industry Not on file Not on file Not on file documented as of this encounter Plan of Treatment Upcoming Encounters Date Type Department Care Team ([facility] Contact Info) Description 04/28/2024 10:00 AM EST Office Visit Nephrology [address] [place] [address] Edvin Khan MD [address] [place] [address] Health Maintenance Due Date Last Done Comments Pneumococcal Vaccine: 65+ Years (1 of 2 - PCV) 1956 Depression Screening 1962 Albumin/Creatinine Ratio 1968 Hepatitis C Screening 1968 DTaP,Tdap,and Td Vaccines (1 - Tdap) 1969 Colonoscopy 08/15/1995 Fecal Occult Blood Test 08/15/1995 Sigmoidoscopy 08/15/1995 Zoster Vaccines (1 of 2) 2000 AAA Screening 08/15/2015 COVID-19 Vaccine ( - season) 2022 CKD PHOS USE SMARTSET 16884 05/03/202304/19, 11/10/2015, 09/03/2014, Additional history exists GFR 10/15/2023 10/18/2023, 03/20, 10/12/2022, Additional history exists Influenza Vaccine (FLU shot) (#1) 2023 Cologuard 02/23/2024 02/22/2021, 02/08/2021 Colorectal Cancer Screening 02/23/2024 CKD HGB USE SMARTSET 97897 04/16/202410/17, 04/16/2023, 10/12/2022, Additional history exists Lipid Panel 04/16/2028 10/18/2023, 03/20, 10/12/2022, Additional history exists HPV (Gardasil) Vaccine Aged Out No lo nger eligible based on patient's age to complete this topic Hepatitis B Vaccine Aged Out No longe r eligible based on patient's age to complete this topic MENINGOCOCCAL (MENACTRA/MENVEO) Aged Out No longer eligible based on patient's age to complete this topic documented as of this encounter Medical Devices Not on filedocumented as of this encounter Procedures Procedure Name Priority Date/Time Associated Diagnosis Comments HEPATIC FUNCTION PANEL Routine 10/18/2023 7:51 AM EDT BASIC METABOLIC PANEL Routine 10/18/2023 7:51 AM EDT CBC Routine 10/18/2023 7:51 AM EDT TSH Routine 10/18/2023 7:51 AM EDT LIPID PANEL WITHOUT DIRECT LDL Routine 10/18/2023 7:51 AM EDT documented in this encounter Results * (ABNORMAL) LIPID PANEL WITHOUT DIRECT LDL (10/18/2023 7:51 AM EDT) CHOLESTEROL-Out side Lab 201(H) 0 - 200 MG/DL [facility] Comment: Document delivery by Antony on behalf of [facility] CHOLESTEROL Less than 200mg/dl Low risk 201-239 mg/dl Borderline risk Equal to or greater 240mg/dl High risk TRIGLYCERIDES-O UTSIDE LAB 235(H) 0 - 150 MG/DL [facility] Comment: Document delivery by Antony on behalf of [facility] TRIGLYCERIDES Less than 150mg/dl Normal 150-199mg/dl Borderline 200-499mg/dl High Greater than 500mg/dl Very High HDLD - OUTSIDE LAB 33 SEE COMMENT MG/DL [facility] Comment: Document delivery by Antony on behalf of [facility] HDL <40mg/dl Elevated Risk 41-59mg/dl Risk >=60mg/dl Least Risk LDL (DIRECT MEASURE)-OUTSID E LAB 119 0 - 130 MG/DL [facility] Comment: Document delivery by Antony on behalf of [facility] LDL <100mg/dl Optimal 100-129mg/dl Near Optimal 130-159mg/dl Borderline High 160-189mg/dl High >=190 Very High CALCULATED VLDL - OUTSIDE LAB 47.0 SEE COMMENT MG/DL [facility] Comment: Document delivery by Antony on behalf of [facility] VLDL Less than 30mg/dl Normal HDLD - OUTSIDE LAB 6.1 SEE COMMENT RATIO [facility] Comment: Document delivery by Antony on behalf of [facility] CHOL/HDL <4.0 Optimal 4.0-5.0 Borderline >6.0 High Risk NON-HDL - OUTSIDE LAB 168 SEE COMMENT MG/DL [facility] Comment: Document delivery by Antony on behalf of [facility] NON-HDL 30mg/dl higher than LDL Target 10/18/2023 7:51 AM EDT Scott Soto Jr., DO LAB BLOOD ORDERAB LES [facility] [address] [place] [address] * CBC WITH WBC DIFFERENTIAL (10/18/2023 7:51 AM EDT) WBC 6.1 3.1 - 9.2 10^3/M3 [facility] Comment:Document delivery by Antony on behalf of [facility] RBC 4.96 4.00 - 5.80 10^6/M3 [facility] Comment:Document delivery by KeyHIE on behalf of [facility] HGB 14.6 12.5 - 17.5 GR/DL [facility] Comment:Document delivery by KeyHIE on behalf of [facility] HGB 42.6 37.5 - 52.5 % [facility] Comment:Document delivery by KeyHIE on behalf of [facility] MCV 85.9 82.6 - 95.8 CU MICR [facility] Comment:Document delivery by KeyHIE on behalf of [facility] MCH 29.5 27.9 - 32.9 VOLODYMYR GR [facility] Comment:Document delivery by KeyHIE on behalf of [facility] MCHC 34.3 32.6 - 35.4 % [facility] Comment:Document delivery by KeyHIE on behalf of [facility] RDW 14.5 11.4 - 14.6 % [facility] Comment:Document delivery by KeyHIE on behalf of [facility] [place] PLT 227 140 - 350 10^3/M3 [facility] Comment:Document delivery by KeyHIE on behalf of [facility] MPV 7.6 7.0 - 10.6 CU [facility] Comment:Document delivery by KeyHIE on behalf of [facility] %NEUT - OUTSIDE LAB 63.9 40.0 - 75.0 % [facility] Comment:Document delivery by KeyHIE on behalf of [facility] %LYMPH - OUTSIDE LAB 25.8 17.0 - 45.0 % [facility] Comment:Document delivery by KeyHIE on behalf of [facility] %MONO - OUTSIDE LAB 7.0 1.0 - 11.0 % [facility] Comment:Document delivery by KeyHIE on behalf of [facility] [place] EO%-OUTSIDE LAB 2.7 0.0 - 6.0 % [facility] Comment:Document delivery by KeyHIE on behalf of [facility] BASOPHILS - OUTSIDE LAB 0.6 0.0 - 2.0 % [facility] Comment:Document delivery by KeyHIE on behalf of [facility] #NEUT - OUTSIDE LAB 3.9 1.5 - 8.0 10^3/M3 [facility] Comment:Document delivery by KeyHIE on behalf of [facility] %LYMPH - OUTSIDE LAB 1.6 0.8 - 3.2 10^3/M3 [facility] Comment:Document delivery by Antony on behalf of [facility] %MONO - OUTSIDE LAB 0.4 0.0 - 0.8 10^3/M3 [facility] Comment:Document delivery by Antony on behalf of [facility] EO#-OUTSIDE LAB 0.2 0.0 - 0.4 10^3/m3 [facility] Comment:Document delivery by Antony on behalf of [facility] Basophils Absolute-Outsi de Lab 0.0 0.0 - 0.2 10^3/m3 [facility] Comment:Document delivery by Antony on behalf of [facility] 10/18/2023 7:51 AM EDT Scott Soto Jr., DO LAB BLOOD ORDERAB LES Performing Organization Address City/[facility]/ZIP Co de Phone Number [facility] [address] [place] [phone] * TSH (10/18/2023 7:51 AM EDT) TSH REFLEX - OUTSIDE LAB 3.83 0.50 - 6.00 uIU/mL [facility] Comment:Document delivery by Antony on behalf of [facility] 10/18/2023 7:51 AM EDT Scott Soto Jr., DO LAB BLOOD ORDERAB LES Performing Organization Address City/[facility]/ZIP Co de Phone Number [facility] [address] [place] [phone] * (ABNORMAL) BASIC METABOLIC PANEL (10/18/2023 7:51 AM EDT) GLUCOSE-OUTSID E LAB 90 70 - 110 MG/DL [facility] Comment:Document delivery by Antony on behalf of [facility] BUN-OUTSIDE LAB 24 6 - 25 MG/DL [facility] Comment:Document delivery by Antony on behalf of [facility] CREATININE-OUT SIDE LAB 1.6(H) 0.7 - 1.3 MG/DL [facility] Comment:Document delivery by Antony on behalf of [facility] SODIUM-OUTSIDE LAB 140 135 - 145 MEQ/L [facility] Comment:Document delivery by Antony on behalf of [facility] POTASSIUM-OUTS ASHLEY LAB 4.9 3.5 - 5.0 MEQ/L [facility] Comment:Document delivery by Antony on behalf of [facility] CHLORIDE-OUTSI DE LAB 105 95 - 107 MEQ/L [facility] Comment:Document delivery by Antony on behalf of [facility] CO2-OUTSIDE LAB 23(L) 24 - 31 MEQ/L [facility] Comment:Document delivery by Antony on behalf of [facility] CALCIUM-OUTSID E LAB 9.3 8.5 - 10.6 MG/DL [facility] Comment:Document delivery by Antony on behalf of [facility] EGFR-OUTSIDE LAB 45(L) >60 ML/MIN/1.7 3 SQM [facility] Comment:Document delivery by Antony on behalf of [facility] 10/18/2023 7:51 AM EDT Scott Soto Jr., DO LAB BLOOD ORDERAB LES [facility] [address] [place] [address] * (ABNORMAL) HEPATIC FUNCTION PANEL (10/18/2023 7:51 AM EDT) ALKALINE PHOSPHATASE-OU TSIDE LAB 36(L) 43 - 122 IU/L [facility] Comment:Document delivery by Antony on behalf of [facility] ALT-OUTSIDE LAB 20 10 - 40 IU/L [facility] Comment:Document delivery by Antony on behalf of [facility] AST-OUTSIDE LAB 18 3 - 42 IU/L [facility] Comment:Document delivery by Antony on behalf of [facility] TOTAL BILIRUBIN - OUTSIDE LAB 0.8 0.1 - 1.3 MG/DL [facility] Comment:Document delivery by Antony on behalf of [facility] BILIRUBIN, DIRECT-OUTSIDE LAB 0.1 0.0 - 0.3 MG/DL [facility] Comment:Document delivery by Antony on behalf of [facility] TOTAL PROTEIN - OUTSIDE LAB 6.7 5.8 - 8.0 G/DL [facility] Comment:Document delivery by Antony on behalf of [facility] ALBUMIN - OUTSIDE LAB 4.4 3.0 - 5.2 G/DL [facility] Comment:Document delivery by Antony on behalf of [facility] 10/18/2023 7:51 AM EDT Scott Soto Jr., DO LAB BLOOD ORDERAB LES [facility] [address] [facility] [address] [place] [address] documented in this encounter Care Teams Sales Representative Printing Relationship Specialty Start Date End Date Scott Soto Jr., DO [address] [place] [address] PCP - General Family Medicine 02/03/14 documented as of this encounter
--- OUTSIDE RECORDS SUMMARY | 2024-02-01 15:01 | External Medical Summary ---
Author Name Unknown Address Unknown Organization K1C:[facility] [address] [place] [address] Laboratory Report Ordering Provider Test Date Status PRIMITIVO HER 10/18/2023 07:51 Final Observation Date Value Abnormality Reference (Units ) Status TSH 10/18/2023 14:37 3.83 0.50-6.00 (uI U/mL) Final Performing Location [facility] [address] [place] [id number]
--- OUTSIDE RECORDS SUMMARY | 2024-02-01 15:01 | External Medical Summary ---
Author Name Unknown Address Unknown Organization [facility]:[address] [place] [address] Laboratory Report Ordering Provider Test Date Status PRIMITIVO HER 10/18/2023 07:51 Final Observation Date Value Abnormality Reference (Units ) Status WBC 10/18/2023 09:55 6.1 3.1-9.2 (10^3 /M3) Final RBC 10/18/2023 09:55 4.96 4.00-5.80 (10 ^6/M3) Final Hemoglobin 10/18/2023 09:55 14.6 12.5-17.5 (G R/DL) Final HCT 10/18/2023 09:55 42.6 37.5-52.5 (%) Final MCV 10/18/2023 09:55 85.9 82.6-95.8 (CU MICR) Final MCH 10/18/2023 09:55 29.5 27.9-32.9 (PI CO GR) Final MCHC 10/18/2023 09:55 34.3 32.6-35.4 (%) Final RDW 10/18/2023 09:55 14.5 11.4-14.6 (%) Final PLT 10/18/2023 09:55 227 140-350 (10^3 /M3) Final MPV 10/18/2023 09:55 7.6 7.0-10.6 (CU MICR) Final Neutrophils/100 leukocytes in Blood 10/18/2023 09:55 63.9 40.0-75.0 (%) Fin al Lymphs % 10/18/2023 09:55 25.8 17.0-45.0 (%) Final Monos 10/18/2023 09:55 7.0 1.0-11.0 (%) Final %EOS 10/18/2023 09:55 2.7 0.0-6.0 (%) F inal Basos 10/18/2023 09:55 0.6 0.0-2.0 (%) F inal Neutrophils [#/volume] in [place] by Manual count 10/18/2023 09:55 3.9 1.5-8.0 (10^ 3/M3) Final Lymphs % 10/18/2023 09:55 1.6 0.8-3.2 (10^3 /M3) Final Monos 10/18/2023 09:55 0.4 0.0-0.8 (10^3 /M3) Final #EOS 10/18/2023 09:55 0.2 0.0-0.4 (10^3 /m3) Final #BASO 10/18/2023 09:55 0.0 0.0-0.2 (10^3 /m3) Final Performing Location [facility] [address] [place] [address]
--- OUTSIDE RECORDS SUMMARY | 2024-02-01 15:01 | External Medical Summary | Continuity of Care Document ---
Author Name Unknown Organization [facility] Address [facility] [facility], [address] [place] [address] Phone [phone] Care Team Providers Care Automotive Consultant Name Role Phone Edvin Khan MD Care Team Information Receive r [phone] Problems Active Problems Provider Date Mixed hyperlipidemia [...] otc Scott Soto JR DO 09/07/[id number] 2 po bid otc E78.2 Scott alegria JR, DO 03/08/2011 Flax Seed [id number] Capsules 1 by mouth every day Scott Soto JR, DO Immunizations CPT Code Status Date Vaccine Lot # [id number] Given 05/05/2011 Tdap (Tetanus, diphtheria & acel. pertussis) Adacel or Boostrix [id number] Refused 10/30/2023 Sarscov2 Vaccin e 50 mcg/0.5 ML For Im Use 12 Yrs And Older 09106 Refused 10/30/2023 Shingrix 60761 Refused 10/30/2023 Pneumococcal Conjugate-Pr evnar 20 49708 Refused 10/30/2023 Influenza Vaccine High Do se 0.5ML Age 65 & > 54367 Refused 10/19/2022 Moderna Sars-Co v-2 (Cov-19) vacc,100 mcg/ 0.5 mL 12Y+EMR Doc Only 81493 Refused 10/19/2022 Shingrix 55174 Refused 10/19/2022 Pneumococcal Conjugate-Pr evnar 20 32841 Refused 10/19/2022 Influenza Vaccine High Do se 0.5ML Age 65 & > [address]65 Refused 10/04/2021 Moderna Sars-Co v-2 (Cov-19) vacc,100 mcg/ 0.5 mL 12Y+EMR Doc Only 79201 Refused 10/04/2021 Pneumococcal Conjugate-Pr evnar 13 08881 Refused 01/25/2021 Influenza Virus Vaccine, Quadrivalent (Cciiv4), Derived From Cell 59859 Refused 01/25/2021 Shingrix 68463 Refused 01/25/2021 Pneumococcal Conjugate-Pr evnar 13 81478 Refused 01/25/2021 Influenza Vaccine High Do se 0.5ML Age 65 & > 60193 Refused 06/08/2020 Moderna Sars-Co v-2 (Cov-19) vacc,100 mcg/ 0.5 mL 12Y+EMR Doc Only 33242 Refused 12/11/2019 Influenza Vaccine High Do se 0.5ML Age 65 & > 81289 Refused 12/11/2019 Shingrix 89909 Refused 12/02/2018 Pneumococcal Conjugate-Pr evnar 13 47142 Refused 12/02/2018 Influenza Virus Vaccine, Quadrivalent, Im Use 38627 Refused 12/02/2018 Shingrix 50501 Refused 04/24/2018 Pneumococcal Vaccine/Pneu movax 23 61545 Refused 04/24/2018 Pneumococcal Conjugate-Pr evnar 13 58888 Refused 11/28/2017 Influenza Virus Vaccine, Quadrivalent, Im Use 75977 Refused 11/28/2017 Pneumococcal Conjugate-Pr evnar 13 97835 Refused 10/22/2017 Shingrix 78509 Refused 10/22/2017 Pneumococcal Conjugate-Pr evnar 13 52457 Refused 04/17/2017 Zostavax-PT Supplied 06122 Refused 12/07/2016 Influenza Vac, Split, Preservative Free High Dose Age 65 & > 58133 Refused 12/08/2015 Influenza Virus Vaccine, Quadrivalent, Im Use 27063 Refused 09/06/2015 Pneumococcal Conjugate-Pr evnar 13 80085 Refused 03/08/2015 Influenza Virus Vaccine, Quadrivalent, [place] Use 28308 Refused 03/02/2015 Influenza Virus Vaccine, Quadrivalent, Im Use 59922 Refused 03/02/2015 Pneumococcal Vaccine/Pneu movax 23 35431 Refused 12/29/2013 Influenza Vac, Split 6 Mo nths And Older 20498 Refused 12/12/2012 Influenza Vac, Split 6 Mo nths And Older 30041 Refused 01/22/2012 Influenza Vac, Split 6 Mo [...] 5'7.75" BMI (Body Mass Index) 36.0 kg/m2 [place] Body Weight 148 lb Results Test Acquired Date Facility Test Result H/L Range N ote BMP 10/18/2023 [facility] [address] [place] [address] Glucose 90 mg/dL 70-110 1 BUN 24 mg/dL 6-25 Creatinine 1.6 mg/dL High 0.7-1.3 Sodium 140 mEq/L 135-145 Potassium 4.9 mEq/L 3.5-5.0 Chloride 105 mEq/L 95-107 Co-2 23 mEq/L Low 24-31 Calcium 9.3 mg/dL 8.5-10.6 GFR 45 ML/MIN/1.73 SQM Low >60 Lipid 10/18/2023 [facility] [address] [place] [address] Cholesterol 201 mg/dL High 0-200 2 Triglyceride 235 mg/dL High 0-150 3 HDLD 33 mg/dL See Comment 4 Measured LDL 119 mg/dL 0-130 5 Calc VLDL 47.0 mg/dL See Comment 6 Chol/HDL 6.1 RATIO See Comment 7 Non-HDL 168 mg/dL See Comment 8 Hepatic 10/18/2023 [facility] [address] [place], [place] [id number] [phone] Alk Phos 36 IU/L Low 43-122 Alt(SGPT) 20 IU/L 10-40 Ast(Sgot) 18 IU/L 3-42 T.Bilirubin 0.8 mg/dL 0.1-1.3 D.Bilirubin 0.1 mg/dL 0.0-0.3 Tot.Protein 6.7 g/dL 5.8-8.0 Albumin 4.4 g/dL 3.0-5.2 TSH With Reflex 10/18/2023 [facility] [address] [place], [place] [id number] TSH (Reflex) 3.83 uIU/mL 0.50-6.00 CBC W/Diff 10/18/2023 [facility] [address] [place] [address] [phone] WBC 6.1 10^3/M3 3.1-9.2 RBC 4.96 10^6/M3 4.00-5.80 HGB 14.6 GR/DL 12.5-17.5 HCT 42.6 % 37.5-52.5 MCV 85.9 CUMICR 82.6-95.8 MCH 29.5 PICOGR 27.9-32.9 MCHC 34.3 % 32.6-35.4 RDW 14.5 % 11.4-14.6 PLT 227 10^3/M3 140-350 MPV 7.6 CUMICR 7.0-10.6 %Neut 63.9 % 40.0-75.0 %Lymph 25.8 % 17.0-45.0 %[place] 7.0 % 1.0-11.0 %Eos 2.7 % 0.0-6.0 %Baso 0.6 % 0.0-2.0 #Neut 3.9 10^3/M3 1.5-8.0 #Lymph 1.6 10^3/M3 0.8-3.2 #[place] 0.4 10^3/M3 0.0-0.8 #Eos 0.2 10^3/m3 0.0-0.4 [...] Target Procedures Date Code Description Status 10/18/2023 35328 Venipuncture Routine Complet ed Medical Devices Description No Information Available Encounters Type Date Location Provider Dx Diagnosis Office Visit 10/30/2023 8:00a [place] Scott Soto JR, DO E78.2 Mixed hyperlipidemia R73.9 Hyperglycemia, unspe cified N19 Unspecified kidney f ailure G56.01 Carpal tunnel syndro me, right upper limb Assessments Date Code Description Provider 10/30/2023 E78.2 Mixed hyperlipidemia Scott Soto JR, DO 10/30/2023 R73.9 Hyperglycemia, unspecified Ej Soto JR, DO 10/30/2023 N19 Unspecified kidney failure Ej Soto JR, DO 10/30/2023 G56.01 Carpal tunnel syndrome, righ t upper limb Scott Soto JR, DO 10/18/2023 E78.2 Mixed hyperlipidemia Scott Soto JR, DO 10/18/2023 E78.2 Mixed hyperlipidemia Lab - [facility] Plan of Treatment Future Appointment(s):* 04/24/2024 8:00 am - [facility] [place] [facility] * 05/01/2024 8:00 am - Scott Soto JR, DO at [facility] 10/30/2023 - Scott Soto JR, DO* E78.2 [...] Description No Information Available Referrals Refer to Reason for Referral Status Appt [facility] right CTS, EMG already done [facility] [address] [facility] [place] [id number] [phone]
--- NOTE | 2024-02-01 15:51 | Cardiology Consultation ---
Date of Consultation February 01, 2024 Assessment & Plan (1) NSTEMI (non-ST elevated myocardial infarction): (2) Chest pain: (3) Single kidney: Plan 73-year-old male seen after late consultation presenting with non-ST segment elevation myocardial infarction. Initial sustained symptoms approximately 12:30 AM this morning resolving on ER presentation. Has remained anticoagulated with IV heparin. Troponins elevated. Echocardiogram with segmental wall motion abnormalities posterolateral with mild diffuse disease findings suspicious for multivessel disease. Patient appropriately on IV heparin, aspirin, beta-gianni, statin. Discussed findings in detail with patient and . Patient warrants coronary angiography. Would recommend transfer to tertiary center with contrast sparing approach given single kidney, CKD stage III. Currently asymptomatic on appropriate therapies. Patient agreeable Echocardiographic images forwarded to [facility] History of Present Illness Reason for Consultation: Non-ST segment elevation myocardial infarction Requesting Physician: Dr. Sharp Attending Physician: Piter Diamond, History of Present Illness 73-year-old male with cardiac risk factors of age, gender, hypertension, hyperlipidemia presents this admission noting having felt poorly after evening meal last evening then approximately 8:30 PM demonstrating a mild chest tightness. Symptoms resolved only to recur approximately 12:30 AM as severe chest tightness and pressure. After ambulating to the bathroom. Patient sought ER evaluation with findings consistent with non-ST segment elevation myocardial infarction. Begun on IV heparin and now referred for further evaluation Third troponin 1084. Echocardiogram with posterolateral wall motion Focal hypokinesis superimposed on diffuse hypokinesis and LV , EF 40-45% Currently asymptomatic no chest pain or tightness though did note earlier today mild brief tightness when ambulating in room. No bleeding issues. No recent fevers chills or unexplained infections. Appetite and weight are stable. History of renal transplant donation with single kidney Allergies Allergy/AdvReac Type Severity Reaction Status Date / Time Penicillins AdvReac Anaphylaxis Verified 02/01/24 02:19 Home Medications Medication Instructions Recorded Confirmed Type acetaminophen 500 mg tablet 500 mg PO AMHS 02/01/24 02/01/24 History flaxseed oil 1,000 mg capsule 1,000 mg PO AMPM 02/01/24 02/01/24 History multivitamin 1 tab PO DAILY 02/01/24 02/01/24 History omega 3-xac-wpz-fish oil 1,000 mg 1 cap PO AMPM 02/01/24 02/01/24 History (120 mg-180 mg) capsule (Fish Oil) Patient History Social History Smoking Status: Never smoker Hx Alcohol Use: No Hx Substance Use: No Preferred Language: Czech Communication Ability: Effective Systems Integration Manager Required: No Beliefs That Will Affect Care: None Current Living Situation: Spouse Other Information That Helps Us Care for You: No Feels Safe at Home: Yes Safety Concerns: Feels Safe At This Time Assistive Devices: None Review of Systems Review of Systems: All systems reviewed & are unremarkable except as noted in HPI & below Physical Exam Constitutional: WD/WN, vitals as above + obese; no acute distress Eyes: PERRL, conjunctivae normal, anicteric sclerae ENMT: external ear and nose normal, oropharynx normal Neck: trachea midline, no thyromegaly Respiratory: normal respiratory effort, lungs clear to auscultation Cardiovascular: RRR, no murmur, no edema Gastrointestinal (Abdomen): normal bowel sounds, soft, nontender, no hepatosplenomegaly Musculoskeletal: no cyanosis or clubbing, extremities motor strength 5/5 Results & Data Vital Signs (Past 12 Hours) Vital Signs Temp Pulse Pulse Resp BP BP BP 02/01/24 15:29 36.4 C L 59 L 18 128/68 02/01/24 15:02 57 L 02/01/24 10:35 36.6 C 66 17 116/67 02/01/24 07:12 36.4 C L 56 L 17 115/67 02/01/24 06:30 36.4 C L 62 18 152/75 H 02/01/24 06:30 36.4 C L 18 152/75 H 02/01/24 06:29 02/01/24 05:33 77 18 123/72 02/01/24 04:57 58 L 18 129/75 02/01/24 04:36 66 17 131/82 02/01/24 04:00 54 L 15 119/70 Pulse Ox Pulse Ox O2 Del Method O2 Del Method 02/01/24 15:29 96 Room Air 02/01/24 15:02 02/01/24 10:35 95 Room Air 02/01/24 07:12 94 Room Air 02/01/24 06:30 96 Room Air 02/01/24 06:30 96 Room Air 02/01/24 06:29 96 Room Air 02/01/24 05:33 94 Room Air 02/01/24 04:57 95 Room Air 02/01/24 04:36 94 Room Air 02/01/24 04:00 93 Room Air Laboratory Results Laboratory Results - last 24 hr 02/01/24 02/01/24 02/01/24 02:08 03:52 12:45 WBC 4.62 L RBC 5.10 Hgb 14.9 Hct 42.7 MCV 83.7 MCH 29.2 MCHC 34.9 RDW Std Deviation 40.2 RDW Coeff of Barbara 13.2 Plt Count 213 MPV 9.0 L Immature Gran % (Auto) 0.4 Neut % (Auto) 51.8 Lymph % (Auto) 36.6 [place] % (Auto) 8.0 Eos % (Auto) 2.6 Baso % (Auto) 0.6 Neut # (Auto) 2.39 Lymph # (Auto) 1.69 [place] # (Auto) 0.37 Eos # (Auto) 0.12 Baso # (Auto) 0.03 Immature Gran # (Auto) 0.02 APTT 27 PTT Ratio 1.0 D-Dimer 370 Heparin Anti-Xa, Unfract 0.60 Sodium 138 Potassium 4.0 Chloride 107 Carbon Dioxide 23 Anion Gap 8 BUN 28 H Creatinine 1.47 H Est Cr Clr Drug Dosing 55.1 eGFR 50.05 BUN/Creatinine Ratio 19.0 Glucose 106 H Calcium 9.1 Magnesium 1.6 L Total Bilirubin 0.6 AST 21 ALT 16 Alkaline Phosphatase 31 L Troponin I High Sens 35.7 H 395.3 H* D Total Protein 6.3 Albumin 3.9 Globulin 2.4 L Albumin/Globulin Ratio 1.6 Lipase 83 H TSH 2.267 02/01/24 14:24 WBC RBC Hgb Hct MCV MCH MCHC RDW Std Deviation RDW Coeff of Barbara Plt Count MPV Immature Gran % (Auto) Neut % (Auto) Lymph % (Auto) [place] % (Auto) Eos % (Auto) Baso % (Auto) Neut # (Auto) Lymph # (Auto) [place] # (Auto) Eos # (Auto) Baso # (Auto) Immature Gran # (Auto) APTT PTT Ratio D-Dimer Heparin Anti-Xa, Unfract Sodium Potassium Chloride Carbon Dioxide Anion Gap BUN Creatinine Est Cr Clr Drug Dosing eGFR BUN/Creatinine Ratio Glucose Calcium Magnesium Total Bilirubin AST ALT Alkaline Phosphatase Troponin I High Sens 1084.0 H* D Total Protein Albumin Globulin Albumin/Globulin Ratio Lipase TSH
--- NOTE | 2024-02-01 16:47 | Hospitalist Progress Note ---
Date of Service February 01, 2024 Assessment & Plan (1) NSTEMI (non-ST elevated myocardial infarction): Plan: NSTEMI Hypertension, initially elevated upon arrival at the ER, not on maintenance medications, stable for now Hyperlipidemia, not on maintenance Rx. Start high intensity statin. 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 They feel he is at high risk and due to his prior nephrectomy recommend transfer to tertiary center for urgent cardiac catheterization. Aspirin, beta-gianni, statin Rx, IV heparin; nitro as needed chest pain TTE, echo shows diffuse hypokinesis. Cardiology consulted Outpatient follow-up with Sleep Medicine for WALTER DVT prophylaxis. IV heparin Full code Patient has been accepted at [facility] for transfer but no beds at current. Accepting physician is Arpan Trinidad MD Total time spent in the care and care coordination for this patient was 60 minutes. Text document was generated using [employer] voice recognition software. It may contain grammatical or spelling errors. Kindly contact undersigned for clarification of any documentation item in question. Admission and Anticipated Discharge Date Admission Date: February 01, 2024 Subjective 73-year-old male with medical history significant for hypertension, hyperlipidemia, CRI (baseline creatinine 1.5-1.6), history left nephrectomy (kidney donation), bronchial asthma, WALTER (CPAP noncompliance), past tobacco abuse. Yesterday, patient noted achy left-sided chest pain going to the neck jaw and upper arm without other symptoms. No recent trauma. Different from his GERD symptom. More intense pain noted in the early a.m. after he woke up. Admitted to this early a.m. Troponin mildly elevated. He is pain-free now. Has a very mild headache. No current chest pain, shortness of breath, nausea, vomiting, diaphoresis, blood in the stools, dysuria, hematuria. Review of Systems Review of Systems: As per HPI and all other review of systems are negative. Physical Exam Physical Exam: General- adult male seen at bedside. His spouse is present. Head- atraumatic Eyes- PERRL, EOMI, anicteric ENT- oropharynx clear Neck- supple, no JVD, no adenopathy, no thyromegaly; carotids +2/2, no bruits appreciated Lungs- clear to auscultation and percussion Heart- regular rhythm; no murmur, no gallop, no rub appreciated Abdomen- normal bowel sounds, soft, nontender, no masses or hepatosplenomegaly Extremities- no pretibial edema, no calf tenderness; peripheral pulses intact Neuro- alert, oriented x 3; PERRL, EOMI; no facial palsy; no dysarthria; motor 5/5 bilaterally; Skin- warm & dry Results & Data Results & Data Vital Signs (Past 12 Hours) Vital Signs Temp Pulse Pulse Resp BP BP BP 02/01/24 15:29 36.4 C L 59 L 18 128/68 02/01/24 15:02 57 L 02/01/24 10:35 36.6 C 66 17 116/67 02/01/24 07:12 36.4 C L 56 L 17 115/67 02/01/24 06:30 36.4 C L 62 18 152/75 H 02/01/24 06:30 36.4 C L 18 152/75 H 02/01/24 06:29 02/01/24 05:33 77 18 123/72 02/01/24 04:57 58 L 18 129/75 Pulse Ox Pulse Ox O2 Del Method O2 Del Method 02/01/24 15:29 96 Room Air 02/01/24 15:02 02/01/24 10:35 95 Room Air 02/01/24 07:12 94 Room Air 02/01/24 06:30 96 Room Air 02/01/24 06:30 96 Room Air 02/01/24 06:29 96 Room Air 02/01/24 05:33 94 Room Air 02/01/24 04:57 95 Room Air Diagnostic Findings Laboratory Results WBC 4.62 K/ul (4.8-10.8) L 02/01/24 02:08 RBC 5.10 M/uL (4.70-6.10) 02/01/24 02:08 Hgb 14.9 g/dl (14.0-18.0) 02/01/24 02:08 Hct 42.7 % (42.0-52.0) 02/01/24 02:08 MCV 83.7 fL (80.0-100.0) 02/01/24 02:08 MCH 29.2 pg (25.0-34.0) 02/01/24 02:08 MCHC 34.9 g/dL (32.0-36.0) 02/01/24 02:08 RDW Std Deviation 40.2 fL (36.4-46.3) 02/01/24 02:08 RDW Coeff of Barbara 13.2 % (11.5-14.5) 02/01/24 02:08 Plt Count 213 K/uL (130-400) 02/01/24 02:08 MPV 9.0 fL (9.4-12.4) L 02/01/24 02:08 Immature Gran % (Auto) 0.4 % 02/01/24 02:08 Neut % (Auto) 51.8 % 02/01/24 02:08 Lymph % (Auto) 36.6 % 02/01/24 02:08 [place] % (Auto) 8.0 % 02/01/24 02:08 Eos % (Auto) 2.6 % 02/01/24 02:08 Baso % (Auto) 0.6 % 02/01/24 02:08 Neut # (Auto) 2.39 K/uL (1.40-6.50) 02/01/24 02:08 Lymph # (Auto) 1.69 K/uL (1.20-3.40) 02/01/24 02:08 [place] # (Auto) 0.37 K/uL (0.11-0.59) 02/01/24 02:08 Eos # (Auto) 0.12 K/uL (0.00-0.50) 02/01/24 02:08 Baso # (Auto) 0.03 K/uL (0.00-0.20) 02/01/24 02:08 Immature Gran # (Auto) 0.02 K/uL (0.01-0.20) 02/01/24 02:08 APTT 27 Seconds (21-31) 02/01/24 02:08 PTT Ratio 1.0 02/01/24 02:08 D-Dimer 370 ug/L FEU (0-500) 02/01/24 02:08 Heparin Anti-Xa, Unfract 0.60 IU/ml (0.3-0.7) 02/01/24 12:45 Sodium 138 mmol/L (136-145) 02/01/24 02:08 Potassium 4.0 mmol/L (3.5-5.1) 02/01/24 02:08 Chloride 107 mmol/L (98-107) 02/01/24 02:08 Carbon Dioxide 23 mmol/L (21-32) 02/01/24 02:08 Anion Gap 8 (3-11) 02/01/24 02:08 BUN 28 mg/dl (6-23) H 02/01/24 02:08 Creatinine 1.47 mg/dl (0.6-1.4) H 02/01/24 02:08 Est Cr Clr Drug Dosing 55.1 ml/min 02/01/24 02:08 eGFR 50.05 02/01/24 02:08 BUN/Creatinine Ratio 19.0 (10-20) 02/01/24 02:08 Glucose 106 mg/dl (70-99(Fasting)) H 02/01/24 02:08 Calcium 9.1 mg/dl (8.6-10.3) 02/01/24 02:08 Magnesium 1.6 mg/dl (1.7-2.4) L 02/01/24 03:52 Total Bilirubin 0.6 mg/dl (0.2-1.0) 02/01/24 02:08 AST 21 U/L (13-39) 02/01/24 02:08 ALT 16 U/L (7-52) 02/01/24 02:08 Alkaline Phosphatase 31 U/L (34-104) L 02/01/24 02:08 Troponin I High Sens 1084.0 pg/ml (0-20) H* D 02/01/24 14:24 Total Protein 6.3 gm/dl (6.0-8.3) 02/01/24 02:08 Albumin 3.9 gm/dl (3.4-5.0) 02/01/24 02:08 Globulin 2.4 gm/dl (2.5-4.0) L 02/01/24 02:08 Albumin/Globulin Ratio 1.6 (0.9-2) 02/01/24 02:08 Lipase 83 U/L (11-82) H 02/01/24 02:08 TSH 2.267 uIu/ml (0.300-4.500) 02/01/24 03:52 Impressions Chest X-Ray 02/01/24 02:05 EXAM: XR chest 1V portable CLINICAL HISTORY: CHEST PAIN J[facility] TECHNIQUE: Portable radiograph of chest was acquired. COMPARISON: None. FINDINGS: The lungs are clear and well-expanded with no pulmonary infiltrate or pleural effusion. The cardiomediastinal silhouette is within normal limits. No acute osseous abnormality. Chest wall leads are noted. IMPRESSION: 1. No acute cardiopulmonary disease Electronically signed by Hector Connor 02-01-2024 03:53 AM Medications Administered Current Inpatient Medications Acetaminophen (Acetaminophen 325 Mg Tab) 650 mg PO QID PRN PRN Reason: pain/fever Stop: 03/02/24 05:21 Aspirin (Aspirin 81 Mg Ectab) 81 mg PO DAILY HARRIET Stop: 03/03/24 08:59 Atorvastatin Calcium (Atorvastatin 40 Mg Tab) 40 mg PO QAM [facility] Stop: 03/02/24 05:24 Last Admin: 02/01/24 08:07 Dose: 40 mg Hydromorphone HCl (Hydromorphone Inj 0.5 Mg/0.5 Ml Syr) 0.5 mg IV Q6H PRN PRN Reason: Pain Stop: 02/15/24 05:22 Heparin Sodium/Dextrose (Heparin Sodium/Dextrose) 25,000 units in 500 mls @ 31 mls/hr IV .[id number] HARRIET; Protocol Stop: 03/02/24 05:14 Last Titration: 02/01/24 13:37 Dose: 1,550 units/hr, 31 mls/hr Promethazine HCl (Phenergan) 6.25 mg in 50.25 mls @ 201 mls/hr IV Q6H PRN PRN Reason: Nausea And Vomiting Stop: 03/02/24 05:22 Metoprolol Tartrate (Metoprolol Tartrate 25 Mg Tab) 12.5 mg PO BID [facility] Stop: 03/02/24 20:59 Oxycodone HCl (Oxycodone Hcl Ir 5 Mg Tab (Immediate Release)) 5 mg PO Q4H PRN PRN Reason: Pain Stop: 02/15/24 05:21
[2024-02-01] MEDS: METOPROLOL TARTRATE 25 MG TAB PO SCH (20:11)
[2024-02-01] MEDS: ACETAMINOPHEN 325 MG TAB PO PRN (20:16)
[2024-02-01] MEDS ORDERED: ATROPINE SULFATE 0.1 MG/ML 10ML SYR IV PRN (22:19)
--- NOTE | 2024-02-01 22:19 | Communication Note ---
Date of Service: February 01, 2024 Patient with episodic bradycardia 30s while sleeping. Patient asymptomatic during episode. AP Asymptomatic bradycardia History WALTER, CPAP noncompliant Current admission for NSTEMI Hold beta-gianni and Nitropaste for now. Atropine as needed symptomatic bradycardia
[2024-02-02 01:38] LABS: Basophils # (auto) 0.02 K/uL (0.00-0.20); Basophils % (auto) 0.3 %; Eosinophils # (auto) 0.14 K/uL (0.00-0.50); Eosinophils % (auto) 2.3 %; Hematocrit (blood only) 41.5 % (42.0-52.0); Hemoglobin 14.3 g/dl (14.0-18.0); Immature Granulocytes # (auto) 0.01 K/uL (0.01-0.20); Immature Granulocytes % (auto) 0.2 %; Lymphocytes # (auto) 1.83 K/uL (1.20-3.40); Lymphocytes % (auto) 30.3 %; Mean Corpuscular Hemoglobin 29.1 pg (25.0-34.0); Mean Corpuscular Hgb Conc 34.5 g/dL (32.0-36.0); Mean Corpuscular Volume 84.5 fL (80.0-100.0); Mean Platelet Volume 9.3 fL (9.4-12.4); Monocytes # (auto) 0.49 K/uL (0.11-0.59); Monocytes % (auto) 8.1 %; Neutrophils # (auto) 3.54 K/uL (1.40-6.50); Neutrophils % (auto) 58.8 %; Platelet Count 217 K/uL (130-400); RDW Coefficient of Variation 13.5 % (11.5-14.5); RDW Standard Deviation 41.9 fL (36.4-46.3); Red Blood Count 4.91 M/uL (4.70-6.10); White Blood Count 6.03 K/ul (4.8-10.8)
[2024-02-02 01:56] LABS: Calcium 8.8 mg/dl (8.6-10.3); Chol HDL Ratio 5.5 (0-5); Creatinine Clr Calc Pharmacy 49.4 ml/min; Magnesium 1.8 mg/dl (1.7-2.4); Potassium 4.8 mmol/L (3.5-5.1)
[2024-02-02 02:04] LABS: Troponin I High Sensitivity 555.4 pg/ml (0-20)
[2024-02-02 02:18] LABS: ANTI-Xa, UFH(UnfractionatedHep 0.97 IU/ml (0.3-0.7)
[2024-02-02] MEDS: ASPIRIN 81 MG ECTAB PO SCH (08:32)
--- NOTE | 2024-02-02 10:29 | Cardiology Progress Note ---
Date of Service February 02, 2024 Assessment & Plan (1) Chest pain: (2) Elevated troponin: (3) NSTEMI (non-ST elevated myocardial infarction): (4) Single kidney: (5) HTN (hypertension): (6) Dyslipidemia, goal LDL below 70: Plan 73-year-old male admitted with with chest discomfort, NSTEMI. Resting echocardiography with segmental posterior wall lateral wall motion abnormality, mild reduction in LV systolic function. Findings concerning for multivessel coronary artery disease. Patient with single kidney following donation 19 years ago, underlying hypertension, dyslipidemia, past tobacco abuse. Patient appropriately treated with IV heparin, aspirin, and statin therapy. Beta- gianni therapy (metoprolol tartrate 12.5 BID) held overnight after mild bradycardia observed in the setting of untreated sleep apnea. Patient remains chest pain-free. * Continue aspirin, moderate intensity statin therapy, and IV heparin. * Retry low-dose evidence-based beta-gianni therapy with metoprolol succinate 12.5 mg/day. * If unable to utilize LEILA/ARB would add long-acting oral nitrates prior to hydralazine as alternative therapy for reduced ejection fraction. * Transfer to tertiary care center for contrast sparing cardiac catheterization noting single kidney pending. Admission and Anticipated Discharge Date Admission Date: February 01, 2024 Supervising Physician Co-Signing Physician Notes I spent a total of 30 minutes on the date of service in preparation, delivery, and documentation of the care provided to this patient, excluding any time spent in the performance of separately billed services. I have personally performed a history and physical examination on the patient. I have reviewed the advance practitioner's documentation, and I agree with, and take responsibility for the plan of care. Subjective Patient seen and examined. Chart, medications, telemetry reviewed. Presented with left sided chest pain radiating to the jaw on upper arm, NSTEMI History of left kidney donation 19 years ago, underlying hypertension, dyslipidemia, asthma, untreated sleep apnea, history of tobacco use Feeling well this AM. Chest pain-free. No dyspnea. Metoprolol tartrate held after mild bradycardia observed overnight. Personal review of patient's multimedia producer reveals sinus throughout with heart rates ranging from a low of 35 bpm overnight up into the 1 teens. Patient does have a history of sleep apnea, untreated Troponin downtrending 35.7 -> 395.3 -> 1084 -> 555.4 -> 404 pg/mL Resting echocardiography with focal regional wall motion abnormality with hypokinesis of the mid and apical posterior lateral wall, EF 45 to 50%. Mildly dilated aortic root and ascending aorta noted along with moderate concentric LVH. Review of Systems Review of Systems: Complete Review of Systems is as stated above, negative, or noncontributory Physical Exam Physical Exam: General: A&Ox3. NAD. HENT: Normocephalic. Atraumatic. Eyes: PER. Conjunctiva pink, sclera clear. Neck: No JVD. Heart: RRR, 80 bpm. No murmur. Lungs: Clear to auscultation. Abdomen: +BS. Extremities: Minimal edema. No clubbing. No cyanosis Limited neurological examination is without focal deficits. Pulses: radial=2/4, posterior tibial=2/4. Results & Data Vital Signs (Past 12 Hours) Vital Signs Temp Pulse Pulse Resp BP BP Pulse Ox 02/02/24 09:15 73 02/02/24 08:00 36.4 C L 71 18 139/78 96 02/02/24 02:56 36.5 C 60 18 116/71 94 02/01/24 23:00 36.4 C L 56 L 16 120/69 93 O2 Del Method 02/02/24 09:15 02/02/24 08:00 Room Air 02/02/24 02:56 Room Air 02/01/24 23:00 Room Air Laboratory Results Cardiac Enzymes 02/01/24 02/02/24 02/02/24 Range/Units 14:24 01:10 07:03 Troponin I High Sens 1084.0 H* D 555.4 H* D 404.0 H* D (0-20) pg/ml Lipids 02/02/24 Range/Units 01:10 Triglycerides 161 H (0-150) mg/dl Cholesterol 182 (0-200) mg/dl HDL Cholesterol 33 mg/dl Cholesterol/HDL Ratio 5.5 H (0-5) CBC 02/02/24 Range/Units 01:10 WBC 6.03 (4.8-10.8) K/ul RBC 4.91 (4.70-6.10) M/uL Hgb 14.3 (14.0-18.0) g/dl Hct 41.5 L (42.0-52.0) % Plt Count 217 (130-400) K/uL Neut # (Auto) 3.54 (1.40-6.50) K/uL Lymph # (Auto) 1.83 (1.20-3.40) K/uL [place] # (Auto) 0.49 (0.11-0.59) K/uL Eos # (Auto) 0.14 (0.00-0.50) K/uL Baso # (Auto) 0.02 (0.00-0.20) K/uL Comprehensive Metabolic Panel 02/02/24 Range/Units 01:10 Sodium 139 (136-145) mmol/L Potassium 4.8 (3.5-5.1) mmol/L Chloride 107 (98-107) mmol/L Carbon Dioxide 27 (21-32) mmol/L BUN 23 (6-23) mg/dl Creatinine 1.64 H (0.6-1.4) mg/dl Glucose 106 H (70-99(Fasting)) mg/dl Calcium 8.8 (8.6-10.3) mg/dl Intake and Output 02/01/24 02/02/24 02/02/24 22:59 06:59 14:59 Intake Total 987.267 / 1449.450 145.183 / 1449.450 97.933 / 97.933 Balance 987.267 / 1449.450 145.183 / 1449.450 97.933 / 97.933 Intake: IV 887.267 / 1249.450 145.183 / 1249.450 97.933 / 97.933 Heparin Sodium/Dextrose 25,000 248.517 / 610.700 145.183 / 610.700 97.933 / 97.933 units In 500 ml @ 1,300 UNITS/ HR 26 mls/hr IV .[id number] HARRIET Rx #:[id number] Sodium Chloride 0.9% 1,000 ml @ 638.75 / 638.75 75 mls/hr IV .[id number] STA Rx#: [id number] Oral 100 / 200 Other: Other Intake Source Patient is NPO # Unmeasured Voids 1 3 Weight 104.8 kg 103.7 kg Weight Measurement Method Built in [facility]
[2024-02-02 10:30] LABS: ANTI-Xa, UFH(UnfractionatedHep 0.73 IU/ml (0.3-0.7)
--- NOTE | 2024-02-02 14:45 | Hospitalist Progress Note ---
Date of Service February 02, 2024 Assessment & Plan (1) NSTEMI (non-ST elevated myocardial infarction): Plan: NSTEMI Hypertension, initially elevated upon arrival at the ER, not on maintenance medications, stable for now Hyperlipidemia, not on maintenance Rx. Started high intensity statin. continue. 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 They feel he is at high risk and due to his prior nephrectomy recommend transfer to tertiary center for urgent cardiac catheterization. Aspirin, statin Rx, IV heparin; nitro as needed chest pain. Beta gianni on hold due to bradycardia observed night of 01/31-02/01. TTE, echo shows diffuse hypokinesis. Cardiology consulted Outpatient follow-up with Sleep Medicine for WALTER DVT prophylaxis. IV heparin Full code Patient has been accepted at [facility] for transfer but no beds at current. Accepting physician is Arpan Trinidad MD Total time spent in the care and care coordination for this patient was 54 minutes. Text document was generated using [employer] voice recognition software. It may contain grammatical or spelling errors. Kindly contact undersigned for clarification of any documentation item in question. Admission and Anticipated Discharge Date Admission Date: February 01, 2024 Subjective Patient was seen and examined at bedside. As patient was sitting up in chair, on room air, NAD, resting comfortably. Patient denies any further chest pain, metoprolol was held after bradycardia observed overnight. Physical Exam Physical Exam: General- adult male seen at bedside. sitting up in chair. Head- atraumatic Eyes- PERRL, EOMI, anicteric ENT- oropharynx clear Neck- supple, no JVD, no adenopathy, no thyromegaly; carotids +2/2, no bruits appreciated Lungs- clear to auscultation and percussion Heart- regular rhythm; no murmur, no gallop, no rub appreciated Abdomen- normal bowel sounds, soft, nontender, no masses or hepatosplenomegaly Extremities- no pretibial edema, no calf tenderness; peripheral pulses intact Neuro- alert, oriented x 3; PERRL, EOMI; no facial palsy; no dysarthria; motor 5/5 bilaterally; Skin- warm & dry Results & Data Results & Data Vital Signs (Past 12 Hours) Vital Signs Temp Pulse Pulse Resp BP BP Pulse Ox 02/02/24 11:11 36.4 C L 66 18 123/76 96 02/02/24 09:15 73 02/02/24 08:00 36.4 C L 71 18 139/78 96 02/02/24 02:56 36.5 C 60 18 116/71 94 O2 Del Method 02/02/24 11:11 Room Air 02/02/24 09:15 02/02/24 08:00 Room Air 02/02/24 02:56 Room Air
[2024-02-02 16:37] LABS: ANTI-Xa, UFH(UnfractionatedHep 0.58 IU/ml (0.3-0.7)
[2024-02-03 03:10] VITALS: PULSE 73; RESP 16; TEMP 97.2; O2SAT 93
[2024-02-03 07:02] VITALS: BP 139/78
[2024-02-03 07:09] LABS: ANTI-Xa, UFH(UnfractionatedHep 0.48 IU/ml (0.3-0.7)
--- NOTE | 2024-02-03 10:47 | Discharge Summary ---
Date of Service February 03, 2024 Admission HPI Per Admitting Provider History obtained from patient, family, and records. Medical history significant for hypertension, hyperlipidemia, CRI (baseline creatinine 1.5-1.6), history left nephrectomy (kidney donation), bronchial asthma, WALTER (CPAP noncompliance), past tobacco abuse. Yesterday, patient noted achy left-sided chest pain going to the neck jaw and upper arm without other symptoms. No recent trauma. Different from GERD. More intense pain noted in the early a.m. after he woke up. Chest pain improved with Nitropaste administration at the ER. 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 Discharge Data Allergies Allergy/AdvReac Type Severity Reaction Status Date / Time Penicillins AdvReac Anaphylaxis Verified 02/01/24 02:19 Consultations 02/01/24 04:44 ED Decision to Admit Stat 02/01/24 14:15 Consult Cardiology Routine Hospital Course (1) NSTEMI (non-ST elevated myocardial infarction): Patient was being managed for the following: NSTEMI Hypertension, initially elevated upon arrival at the ER, not on maintenance medications, stable for now Hyperlipidemia, not on maintenance Rx. Started high intensity statin. continue. 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 They feel he is at high risk and due to his prior nephrectomy recommend transfer to tertiary center for urgent cardiac mary terization. Aspirin, statin Rx, IV heparin; nitro as needed chest pain. Beta gianni on hold due to bradycardia observed night of 01/31-02/01. TTE, echo shows diffuse hypokinesis. Cardiology consulted Outpatient follow-up with Sleep Medicine for WALTER DVT prophylaxis. IV heparin Full code Patient has been accepted at [facility] for transfer but no beds at current. Accepting physician is Arpan Trinidad MD Text document was generated using [employer] voice recognition software. It may contain grammatical or spelling errors. Kindly contact undersigned for clarification of any documentation item in question. Pt left/transferred to [facility] before [facility] was aware [facility]. Home Health Attestation I certify that this patient is under my care and that I, or a physicians technology assistant working with me, had a face to-face encounter that meets the home health [id number] encounter requirements with this patient. The encounter with the patient was in whole, or in part, for the following medical condition, which is the primary reason for home health care (list medical condition): I certify that, based on my findings, the following services are medically necessary home health services: My clinical findings support the need for the above services because: Further, I certify that my clinical findings support that this patient is homebound (i.e. absences from home require considerable and taxing effort and are for medical reasons or alevism services or infrequently or of short duration when for other reasons) because: Certification for Home Health Services: Based on the above findings, I certify that this patient is confined to the home and needs intermittent usp care, physical therapy and/or speech therapy or continues to need occupational therapy. The patient is under my care, and I have initiated the establishment of the plan of care. This patient will be followed by a physician who will periodically review the plan of care. Total Time Total Time Spent Total Time Spent (In Minutes): 15 Discharge Plan Discharge Items Patient Disposition: Transfer Acute Care Hospital Reason For Visit: ACS Discharge Diagnosis: NSTEMI Activity: As commented below Activity Comment: Per tertiary care recommendations. Non-emergency contact: Primary Care Provider Call non-emergency contact if: you have any medication questions Follow-up/Referrals: Scott Soto [Primary Care Provider] - Diet: Nothing by Mouth Addtl Attending Provider Instructions: Your prior to arrival Home medications are continued as it is in [facility] and your current inpatient medications are copied and pasted here for the sake of comparison. You will be discharged with heparin drip en route to [facility]. Current Inpatient Medications Acetaminophen (Acetaminophen 325 Mg Tab) 650 mg PO QID PRN PRN Reason: pain/fever Stop: 03/02/24 05:21 Last Admin: 02/01/24 20:16 Dose: 650 mg Aspirin (Aspirin 81 Mg Ectab) 81 mg PO DAILY [facility] Stop: 03/03/24 08:59 Last Admin: 02/02/24 08:32 Dose: 81 mg Atorvastatin Calcium (Atorvastatin 40 Mg Tab) 40 mg PO QAM [facility] Stop: 03/02/24 05:24 Last Admin: 02/02/24 08:32 Dose: 40 mg Atropine Sulfate (Atropine Sulfate 0.1 Mg/Ml 10ml Syr) 1 mg IV Q3M PRN PRN Reason: symptomatic bradycardia Stop: 03/02/24 22:18 Hydromorphone HCl (Hydromorphone Inj 0.5 Mg/0.5 Ml Syr) 0.5 mg IV Q6H PRN PRN Reason: Pain Stop: 02/15/24 05:22 Heparin Sodium/Dextrose (Heparin Sodium/Dextrose) 25,000 units in 500 mls @ 24 mls/hr IV .[id number] [facility]; Protocol Stop: 03/02/24 05:14 Last Titration: 02/02/24 10:31 Dose: 1,200 units/hr, 24 mls/hr Promethazine HCl (Phenergan) 6.25 mg in 50.25 mls @ 201 mls/hr IV Q6H PRN PRN Reason: Nausea And Vomiting Stop: 03/02/24 05:22 Metoprolol Tartrate (Metoprolol Tartrate 25 Mg Tab) 12.5 mg PO BID [facility] Stop: 03/02/24 20:59 Last Admin: 02/01/24 20:11 Dose: 12.5 mg Oxycodone HCl (Oxycodone Hcl Ir 5 Mg Tab (Immediate Release)) 5 mg PO Q4H PRN PRN Reason: Pain Stop: 02/15/24 05:21 Pending Studies at Discharge: No Stand-Alone Forms: [facility] Skilled Items Patient informed of condition?: Yes DNR: No Discharge Level of Care: Other Communicable Disease: No Discharge Prognosis: Other Lines: Peripheral IV Urinary Catheter: No Medications and DC Order Prescriptions: Continued acetaminophen 500 mg Tablet 500 mg PO AMHS multivitamin Tablet 1 tab PO DAILY flaxseed oil 1,000 mg Capsule 1,000 mg PO AMPM Rx Instructions: administer with meals omega 3-goy-wzl-fish oil [Fish Oil] 1,000 (120-180) mg Capsule 1 cap PO AMPM Discharge Orders: Discharge Order (Routine); Ordered 02/02/24 Ordered By: Anastasiia Astorga Admission Data Admit Date/Time: 02/01/24 04:51 Attending Provider: Anastasiia Astorga Admit Provider: Titi Aguirre Primary Care Provider: Scott Soto Other Providers: Titi Aguirre; Skye Garcia; Neftaly Foster; Db Medina; Wilbert Lindquist; Chris Gunter; Cristian Chahal; Alice Zheng; Tracie West; Shivam Quinn Ashley M.; John Mancilla; Fitz Montaño; Mallory Dietz; Ethel Soto; Sameera Taylor; Donovan Soler; Raheel Howe; Hilda Quiroz; Julia Delgado Other Interventions: Discharge Summary Assessment (RN) Last Done: 02/03/24 07:00
== END 2024-02-03 08:19 | disposition short-term general hospital (02) | DRG 282 ==
LOC: ED 01:29 → SUATTDRO 04:51 → 2S 04:51

== ENCOUNTER 2024-10-15 17:26 | Observation (INO) ==
[2024-10-15 18:01] LABS: Hematocrit (blood only) 39.5 % (42.0-52.0); Hemoglobin 13.5 g/dl (14.0-18.0); Immature Granulocytes # (auto) 0.01 K/uL (0.01-0.20); Immature Granulocytes % (auto) 0.2 %; Mean Corpuscular Hemoglobin 29.7 pg (25.0-34.0); Mean Corpuscular Volume 87.0 fL (80.0-100.0); Platelet Count 216 K/uL (130-400); RDW Standard Deviation 44.0 fL (36.4-46.3); Red Blood Count 4.54 M/uL (4.70-6.10); White Blood Count 4.73 K/ul (4.8-10.8)
--- NOTE | 2024-10-15 18:16 | Emergency Department Note ---
Impression & Plan Chest pain ED Provider Note HISTORY OF PRESENT ILLNESS: Patient is a 74-year-old male presenting with chest pain. Patient reports that he began having some shortness of breath and chest tightness last evening. He states that the chest pressure seems to come and go. He states that throughout the day today he has become more short of breath with any sort of exertion. He has also had intermittent episodes of diffuse chest tightness. He locates the pain to the substernal region and states it radiates into his left chest. He does have a history of CAD with a stent in place. He is on Brilinta. He reports the chest tightness feels similar to when he required a stent. He denies any abdominal pain, nausea or vomiting. He reports he has had a cough since last night. Denies any fevers. Denies any recent sick contact exposures. ROS: as above PHYSICAL EXAM: Constitutional: Patient appears in no acute distress. HENT: Head: Normocephalic and atraumatic. Eyes: EOMI, PERRL Mouth/Throat: Mucous membranes moist. Neck: Trachea midline. Neck supple. Cardiovascular: RRR, No murmurs, rubs or gallops. Intact distal pulses. Pulmonary/Chest: No respiratory distress. Breath sounds clear and equal bilaterally. No wheezes or rales. Abdominal: Abdomen soft, no tenderness, rebound or guarding. Skin: Warm and dry. No rash, erythema, pallor or cyanosis Psychiatric: Appropriate mood and affect for situation. Neurological: Alert and keenly responsive. CN II-XII grossly intact, moving all extremities equally and fully. MDM: - Vitals signs stable. - History obtained via patient. History as above. - Chronic conditions affecting care: CAD (s/p PCI); HTN; HLD - Differential diagnoses include, but are not limited to: Acute coronary syndrome; pulmonary embolism; dissection; tension pneumothorax; esophageal rupture; pneumonia - Order placed for continuous cardiac monitoring. At this time, monitor showed rate of 61 bpm with normal sinus rhythm, per my interpretation. - External medical records reviewed. Discharge summary dated 02/03/2024 was reviewed. Patient was admitted that time for an NSTEMI. He was transferred to a tertiary care center for urgent cardiac catheterization secondary to his high risk status with a previous nephrectomy. - EKG image interpreted by myself showed normal sinus rhythm. Rate 63 bpm. QTc 412. No acute ischemic changes. - Laboratory workup interpreted by myself showed leukopenia (WBC 4.73); normal PT/INR; stable electrolytes; baseline CKD (Cr 1.59); normal troponin - CXR image reviewed by myself is negative for pneumonia, per my interpretation. - Repeat troponin within normal limits. - Patient is still complaining of some vague chest pain in the emergency department. However, he is declining any pain medications at this time. Moderate HEART score, in a patient with a history of CAD and stents. He is having his anginal equivalent of chest pain. Will admit to hospital service for further evaluation and management. - Discussion was had with community case manager about patient's case and need for admission - Hospitalist, Dr. Mcrae, consulted for admission - [facility] ASSESSMENT AND PLAN: Diagnosis: Chest pain Plan: Admit Past Med/Surg History Problem List (Updated 10/15/24 @ 21:13 by Ning Reyes MD) Chest pain (Acute) Dyslipidemia, goal LDL below 70 HTN (hypertension) Single kidney NSTEMI (non-ST elevated myocardial infarction) (Acute) Elevated troponin (Acute) Chest pain (Acute) Carpal tunnel syndrome on both sides Social History Smoking Status: Never smoker Hx Alcohol Use: No Hx Substance Use: No Preferred Language: Japanese Communication Ability: Effective Trust [employer] Estates Attorney Required: No Beliefs That Will Affect Care: None Current Living Situation: Spouse Feels Safe at Home: Yes Assistive Devices: None Allergies Allergies Allergy/AdvReac Type Severity Reaction Status Date / Time Penicillins AdvReac Anaphylaxis Verified 10/15/24 19:11 Home Meds Home Medications Medication Instructions Recorded Confirmed acetaminophen 500 mg tablet 500 mg PO AMHS 02/01/24 10/15/24 flaxseed oil 1,000 mg capsule 1,000 mg PO AMPM 02/01/24 10/15/24 multivitamin 1 tab PO DAILY 02/01/24 10/15/24 omega 0-zxi-lzf-fish oil 1,000 mg 1 cap PO AMPM 02/01/24 10/15/24 (120 mg-180 mg) capsule (Fish Oil) aspirin 81 mg chewable tablet 81 mg PO QAM 10/15/24 10/15/24 atorvastatin 80 mg tablet 80 mg PO QAM 10/15/24 10/15/24 losartan 25 mg tablet 25 mg PO QAM 10/15/24 10/15/24 nitroglycerin 0.4 mg sublingual 0.4 mg sublingual DIRECTED 10/15/24 10/15/24 tablet ticagrelor 90 mg tablet (Brilinta) 90 mg PO BID 10/15/24 10/15/24 Results & Data (ED) Vital Signs Vital Signs - 24 hr 10/15/24 17:30 10/15/24 17:51 10/15/24 17:51 Temperature 36.8 C Temperature Source Temporal Artery Scan Pulse Rate 77 77 Pulse Rate from SpO2 Sensor Pulse Rhythm Regular Respiratory Rate 16 Respiratory Effort / Characteristics Non-Labored Spontaneous Respiratory Depth Normal Respiratory Pattern Regular Blood Pressure 139/84 Blood Pressure Mean 102 Blood Pressure Position Sitting Pulse Oximetry 96 96 96 Oxygen Delivery Method Room Air Room Air Room Air Oxygen Flow Rate 0 Sepsis Recent Fever Within 48 Hours No Sepsis New/Unexplained Change in Mental Status No Sepsis Action Taken by Nursing No Action Required 10/15/24 18:04 10/15/24 18:06 10/15/24 18:24 Temperature Temperature Source Pulse Rate 57 L 59 L 63 Pulse Rate from SpO2 Sensor 59 L 66 Pulse Rhythm Respiratory Rate 15 22 Respiratory Effort / Characteristics Respiratory Depth Respiratory Pattern Blood Pressure 130/74 129/81 Blood Pressure Mean 92 97 Blood Pressure Position Pulse Oximetry 96 96 Oxygen Delivery Method Oxygen Flow Rate Sepsis Recent Fever Within 48 Hours Sepsis New/Unexplained Change in Mental Status Sepsis Action Taken by Nursing 10/15/24 18:51 10/15/24 19:09 10/15/24 19:30 Temperature Temperature Source Pulse Rate 61 59 L 64 Pulse Rate from SpO2 Sensor 60 58 L 65 Pulse Rhythm Respiratory Rate 21 20 13 Respiratory Effort / Characteristics Respiratory Depth Respiratory Pattern Blood Pressure 123/75 123/75 120/101 H Blood Pressure Mean 91 91 107 Blood Pressure Position Pulse Oximetry 96 97 97 Oxygen Delivery Method Room Air Oxygen Flow Rate Sepsis Recent Fever Within 48 Hours Sepsis New/Unexplained Change in Mental Status Sepsis Action Taken by Nursing 10/15/24 19:45 10/15/24 20:33 Temperature Temperature Source Pulse Rate 64 64 Pulse Rate from SpO2 Sensor 65 67 Pulse Rhythm Respiratory Rate 20 21 Respiratory Effort / Characteristics Respiratory Depth Respiratory Pattern Blood Pressure 139/84 126/75 Blood Pressure Mean 102 92 Blood Pressure Position Pulse Oximetry 97 98 Oxygen Delivery Method Room Air Nasal Cannula Oxygen Flow Rate 2 Sepsis Recent Fever Within 48 Hours Sepsis New/Unexplained Change in Mental Status Sepsis Action Taken by Nursing Laboratory Data 10/15/24 17:46 10/15/24 17:46 Lab Results 10/15/24 10/15/24 Range/Units 17:46 19:00 WBC 4.73 L (4.8-10.8) K/ul RBC 4.54 L (4.70-6.10) M/uL Hgb 13.5 L (14.0-18.0) g/dl Hct 39.5 L (42.0-52.0) % MCV 87.0 (80.0-100.0) fL MCH 29.7 (25.0-34.0) pg MCHC 34.2 (32.0-36.0) g/dL RDW Std Deviation 44.0 (36.4-46.3) fL RDW Coeff of Barbara 13.9 (11.5-14.5) % Plt Count 216 (130-400) K/uL MPV 9.1 L (9.4-12.4) fL Immature Gran % (Auto) 0.2 % Neut % (Auto) 55.8 % Lymph % (Auto) 29.6 % [place] % (Auto) 8.7 % Eos % (Auto) 5.1 % Baso % (Auto) 0.6 % Neut # (Auto) 2.64 (1.40-6.50) K/uL Lymph # (Auto) 1.40 (1.20-3.40) K/uL [place] # (Auto) 0.41 (0.11-0.59) K/uL Eos # (Auto) 0.24 (0.00-0.50) K/uL Baso # (Auto) 0.03 (0.00-0.20) K/uL Immature Gran # (Auto) 0.01 (0.01-0.20) K/uL PT 11.2 (9.0-12.0) Seconds INR 1.0 (0.9-1.1) APTT 28 (21-31) Seconds PTT Ratio 1.0 Sodium 139 (136-145) mmol/L Potassium 4.5 (3.5-5.1) mmol/L Chloride 110 H (98-107) mmol/L Carbon Dioxide 22 (21-32) mmol/L Anion Gap 7 (3-11) BUN 28 H (6-23) mg/dl Creatinine 1.59 H (0.6-1.4) mg/dl Est Cr Clr Drug Dosing 49.5 ml/min eGFR 45.27 BUN/Creatinine Ratio 17.6 (10-20) Glucose 98 (70-99(Fasting)) mg/dl Calcium 8.9 (8.6-10.3) mg/dl Total Bilirubin 0.6 (0.2-1.0) mg/dl AST 23 (13-39) U/L ALT 21 (7-52) U/L Alkaline Phosphatase 40 (34-104) U/L Troponin I High Sens 5.8 6.1 (0-20) pg/ml Total Protein 6.8 (6.0-8.3) gm/dl Albumin 3.9 (3.4-5.0) gm/dl Globulin 2.9 (2.5-4.0) gm/dl Albumin/Globulin Ratio 1.3 (0.9-2) Imaging Data Radiologist's Impression: Chest X-Ray 10/15/24 17:33 Exam: X-ray chest one view portable Reason for exam: Chest pain Previous studies: Chest radiograph 02/01/2024. FINDINGS: Suboptimal inspiration is made. Cardiac size remains normal. There are some linear opacities in both lung bases nonspecific, but most likely representing a subsegmental atelectasis in the presence of the suboptimal inspiration. Upper lung zones remain clear. IMPRESSION: Mild linear atelectasis both lower lobes, with suboptimal inspiration. Electronically signed by Carrington Armstrong 10-15-2024 6:24 PM Discharge Plan Visit Data Chief Complaint: Chest Pain Stated Complaint: SOB, CHEST PAIN ED Provider: Ning Reyes Discharge Problem: Chest pain Condition: Fair Forms Stand Alone Forms: [facility] Prescriptions Prescriptions: No Action acetaminophen 500 mg Tablet 500 mg PO AMHS multivitamin Tablet 1 tab PO DAILY flaxseed oil 1,000 mg Capsule 1,000 mg PO AMPM Rx Instructions: administer with meals omega 8-fdn-tgq-fish oil [Fish Oil] 1,000 (120-180) mg Capsule 1 cap PO AMPM atorvastatin 80 mg tablet 80 mg PO QAM losartan 25 mg tablet 25 mg PO QAM nitroglycerin 0.4 mg tablet, sublingual 0.4 mg sublingual DIRECTED aspirin 81 mg tablet,chewable 81 mg PO QAM ticagrelor [Brilinta] 90 mg tablet 90 mg PO BID Referrals Referrals: Scott Soto [Primary Care Provider] -
[2024-10-15 18:20] LABS: Alanine Aminotransferase 21.0 U/L (7-52); Albumin Globulin Ratio 1.3 (0.9-2); Alkaline Phosphatase 40.0 U/L (34-104); Anion Gap 7.0 (3-11); Bilirubin,Total 0.6 mg/dl (0.2-1.0); Blood Urea Nitrogen 28.0 mg/dl (6-23); Calcium 8.9 mg/dl (8.6-10.3); Carbon Dioxide 22.0 mmol/L (21-32); Chloride 110.0 mmol/L (98-107); Creatinine Clr Calc Pharmacy 49.5 ml/min; Globulin 2.9 gm/dl (2.5-4.0); Glucose 98.0 mg/dl (70-99(Fasting)); Potassium 4.5 mmol/L (3.5-5.1); Sodium 139.0 mmol/L (136-145); Total Protein 6.8 gm/dl (6.0-8.3)
--- NOTE | 2024-10-15 18:24 | XRay Report ---
Exam: X-ray chest one view portable Reason for exam: Chest pain Previous studies: Chest radiograph 02/01/2024. FINDINGS: Suboptimal inspiration is made. Cardiac size remains normal. There are some linear opacities in both lung bases nonspecific, but most likely representing a subsegmental atelectasis in the presence of the suboptimal inspiration. Upper lung zones remain clear. IMPRESSION: Mild linear atelectasis both lower lobes, with suboptimal inspiration. Electronically signed by Carrington Armstrong 10-15-2024 6:24 PM
[2024-10-15 18:47] LABS: INR 1.0 (0.9-1.1); Partial Thromboplastin Time 28 Seconds (21-31); Prothrombin Time 11.2 Seconds (9.0-12.0)
--- NOTE | 2024-10-15 22:34 | History & Physical Report ---
Date of Service October 15, 2024 Assessment & Plan (1) Chest pain: Plan: 74-year-old male with past medical history significant for mild intermittent asthma, CAD status post stent, CKD stage III, status post left nephrectomy(kidney transplant donation per records), obstructive sleep apnea noncompliance per records presents with chest pain. Patient states since last night having cough bringing up whitish phlegm and shortness of breath. And today evening he noticed chest discomfort. No radiation of the discomfort. No sweating or dizziness. With these ongoing symptoms prompted him to come to the ER. Currently resting comfortably. Still has some mild chest discomfort and feels short of breath. Denies any fevers. No headache. No runny nose. No sore throat. Vision is okay. Ambulating okay. Denies any worsening of chest pain or shortness of breath while ambulating. No abdominal pain. Normal bowel and bladder meds. Hemodynamics are okay. In January 2024 patient was admitted for non-ST elevated MN and because of his prior nephrectomy and high risk patient was transferred to [place]. At [place] found to have moderate multiple vessel coronary disease with culprit lesion thrombotic stenosis of large diagonal branch D1 and was status post drug-eluting stent. Chest pain Shortness of breath and cough bringing whitish phlegm EKG and initial 2 sets of troponin unremarkable Chest x-ray okay History of CAD Will monitor in telemetry N.p.o. after midnight Will follow serial cardiac enzymes and echo Consult cardiology in a.m. History of CAD Moderate multivessel disease Status post stent to the thrombotic stenosis of large diagonal branch D1 On aspirin, Brilinta, high-dose statin Hypertension On losartan CKD stage III Status post left nephrectomy Creatinine 1.5 which is around baseline Will follow labs DVT prophylaxis SCDs Disposition Observation med/telemetry Full code History of Present Illness Chief Complaint: Chest pain Primary Care Provider: Scott Soto 74-year-old male with past medical history significant for mild intermittent asthma, CAD status post stent, CKD stage III, status post left nephrectomy(kidney transplant donation per records), obstructive sleep apnea noncompliance per records presents with chest pain. Patient states since last night having cough bringing up whitish phlegm and shortness of breath. And today evening he noticed chest discomfort. No radiation of the discomfort. No sweating or dizziness. With these ongoing symptoms prompted him to come to the ER. Currently resting comfortably. Still has some mild chest discomfort and feels short of breath. Denies any fevers. No headache. No runny nose. No sore throat. Vision is okay. Ambulating okay. Denies any worsening of chest pain or shortness of breath while ambulating. No abdominal pain. Normal bowel and bladder meds. Hemodynamics are okay. In January 2024 patient was admitted for non-ST elevated MN and because of his prior nephrectomy and high risk patient was transferred to [place]. At [place] found to have moderate multiple vessel coronary disease with culprit lesion thrombotic stenosis of large diagonal branch D1 and was status post drug-eluting stent. Past medical history. As mentioned above. Past surgical history. Left heart catheterization. Appendectomy. Left nephrectomy for renal transplant donation. Social history. . Quit smoking 1974. Smoked 2.5 pack a day for 5 years. No alcohol use. No drug use. Family history. Mother had stomach cancer. Father had Alzheimer's disease. Allergies Allergy/AdvReac Type Severity Reaction Status Date / Time Penicillins AdvReac Anaphylaxis Verified 10/15/24 19:11 Home Medications Medication Instructions Recorded Confirmed Type acetaminophen 500 mg tablet 500 mg PO AMHS 02/01/24 10/15/24 History flaxseed oil 1,000 mg capsule 1,000 mg PO AMPM 02/01/24 10/15/24 History multivitamin 1 tab PO DAILY 02/01/24 10/15/24 History omega 9-dut-zaj-fish oil 1,000 mg 1 cap PO AMPM 02/01/24 10/15/24 History (120 mg-180 mg) capsule (Fish Oil) aspirin 81 mg chewable tablet 81 mg PO QAM 10/15/24 10/15/24 History atorvastatin 80 mg tablet 80 mg PO QAM 10/15/24 10/15/24 History losartan 25 mg tablet 25 mg PO QAM 10/15/24 10/15/24 History nitroglycerin 0.4 mg sublingual 0.4 mg sublingual DIRECTED 10/15/24 10/15/24 History tablet ticagrelor 90 mg tablet (Brilinta) 90 mg PO BID 10/15/24 10/15/24 History Past Med/Surg History Problem List (Updated 10/15/24 @ 21:13 by Ning Reyes MD) Chest pain (Acute) Dyslipidemia, goal LDL below 70 HTN (hypertension) Single kidney NSTEMI (non-ST elevated myocardial infarction) (Acute) Elevated troponin (Acute) Chest pain (Acute) Carpal tunnel syndrome on both sides Social History Smoking Status: Former smoker Tobacco Type: Cigarettes Hx Alcohol Use: No Hx Substance Use: No Preferred Language: Andorran Communication Ability: Effective Jack Spinner Required: No Beliefs That Will Affect Care: None Current Living Situation: Spouse Other Information That Helps Us Care for You: No Feels Safe at Home: Yes Safety Concerns: Feels Safe At This Time Assistive Devices: Glasses Review of Systems Review of Systems: All systems reviewed & are unremarkable except as noted in HPI & below Physical Exam Physical Exam: General- Not in distress Head- atraumatic Eyes- PERRL. ENT- oropharynx clear Neck- supple, no JVD. Lungs- clear to auscultation no wheezing or crackles Heart- regular rate and rhythm; no murmur, no gallop. Abdomen- normal bowel sounds, soft, nontender, no distension Extremities- no pretibial edema, no erythema seen Neuro- alert, oriented PERRL, no facial palsy; no dysarthria; moves extremities Results & Data Results & Data Vital Signs (Past 12 Hours) Vital Signs Temp Pulse Resp BP Pulse Ox O2 Del Method O2 Flow Rate 10/15/24 22:00 61 10/15/24 20:33 64 21 126/75 98 Nasal Cannula 2 10/15/24 19:45 64 20 139/84 97 Room Air 10/15/24 19:30 64 13 120/101 H 97 10/15/24 19:09 59 L 20 123/75 97 10/15/24 18:51 61 21 123/75 96 Room Air 10/15/24 18:24 63 22 129/81 96 10/15/24 18:06 59 L 15 130/74 96 10/15/24 18:04 57 L 10/15/24 17:51 77 96 Room Air 10/15/24 17:51 96 Room Air 0 10/15/24 17:30 36.8 C 77 16 139/84 96 Room Air Diagnostic Findings Laboratory Results WBC 4.73 K/ul (4.8-10.8) L 10/15/24 17:46 RBC 4.54 M/uL (4.70-6.10) L 10/15/24 17:46 Hgb 13.5 g/dl (14.0-18.0) L 10/15/24 17:46 Hct 39.5 % (42.0-52.0) L 10/15/24 17:46 MCV 87.0 fL (80.0-100.0) 10/15/24 17:46 MCH 29.7 pg (25.0-34.0) 10/15/24 17:46 MCHC 34.2 g/dL (32.0-36.0) 10/15/24 17:46 RDW Std Deviation 44.0 fL (36.4-46.3) 10/15/24 17:46 RDW Coeff of Barbara 13.9 % (11.5-14.5) 10/15/24 17:46 Plt Count 216 K/uL (130-400) 10/15/24 17:46 MPV 9.1 fL (9.4-12.4) L 10/15/24 17:46 Immature Gran % (Auto) 0.2 % 10/15/24 17:46 Neut % (Auto) 55.8 % 10/15/24 17:46 Lymph % (Auto) 29.6 % 10/15/24 17:46 [place] % (Auto) 8.7 % 10/15/24 17:46 Eos % (Auto) 5.1 % 10/15/24 17:46 Baso % (Auto) 0.6 % 10/15/24 17:46 Neut # (Auto) 2.64 K/uL (1.40-6.50) 10/15/24 17:46 Lymph # (Auto) 1.40 K/uL (1.20-3.40) 10/15/24 17:46 [place] # (Auto) 0.41 K/uL (0.11-0.59) 10/15/24 17:46 Eos # (Auto) 0.24 K/uL (0.00-0.50) 10/15/24 17:46 Baso # (Auto) 0.03 K/uL (0.00-0.20) 10/15/24 17:46 Immature Gran # (Auto) 0.01 K/uL (0.01-0.20) 10/15/24 17:46 PT 11.2 Seconds (9.0-12.0) 10/15/24 17:46 INR 1.0 (0.9-1.1) 10/15/24 17:46 APTT 28 Seconds (21-31) 10/15/24 17:46 PTT Ratio 1.0 10/15/24 17:46 Sodium 139 mmol/L (136-145) 10/15/24 17:46 Potassium 4.5 mmol/L (3.5-5.1) 10/15/24 17:46 Chloride 110 mmol/L (98-107) H 10/15/24 17:46 Carbon Dioxide 22 mmol/L (21-32) 10/15/24 17:46 Anion Gap 7 (3-11) 10/15/24 17:46 BUN 28 mg/dl (6-23) H 10/15/24 17:46 Creatinine 1.59 mg/dl (0.6-1.4) H 10/15/24 17:46 Est Cr Clr Drug Dosing 49.5 ml/min 10/15/24 17:46 eGFR 45.27 10/15/24 17:46 BUN/Creatinine Ratio 17.6 (10-20) 10/15/24 17:46 Glucose 98 mg/dl (70-99(Fasting)) 10/15/24 17:46 Calcium 8.9 mg/dl (8.6-10.3) 10/15/24 17:46 Total Bilirubin 0.6 mg/dl (0.2-1.0) 10/15/24 17:46 AST 23 U/L (13-39) 10/15/24 17:46 ALT 21 U/L (7-52) 10/15/24 17:46 Alkaline Phosphatase 40 U/L (34-104) 10/15/24 17:46 Troponin I High Sens 6.1 pg/ml (0-20) 10/15/24 19:00 Total Protein 6.8 gm/dl (6.0-8.3) 10/15/24 17:46 Albumin 3.9 gm/dl (3.4-5.0) 10/15/24 17:46 Globulin 2.9 gm/dl (2.5-4.0) 10/15/24 17:46 Albumin/Globulin Ratio 1.3 (0.9-2) 10/15/24 17:46 Impressions Chest X-Ray 10/15/24 17:33 Exam: X-ray chest one view portable Reason for exam: Chest pain Previous studies: Chest radiograph 02/01/2024. FINDINGS: Suboptimal inspiration is made. Cardiac size remains normal. There are some linear opacities in both lung bases nonspecific, but most likely representing a subsegmental atelectasis in the presence of the suboptimal inspiration. Upper lung zones remain clear. IMPRESSION: Mild linear atelectasis both lower lobes, with suboptimal inspiration. Electronically signed by Carrington Armstrong 10-15-2024 6:24 PM ECG Additional Comments: ECG. Normal sinus rhythm rate of 63. No acute ST changes seen. QTc 421 Code Status & VTE Plan VTE Prophylaxis Plan VTE Prophylaxis will be ordered: Yes
[2024-10-15] MEDS: TICAGRELOR 90 MG TAB PO STA (23:39)
[2024-10-16] MEDS ORDERED: NITROGLYCERIN SL 0.4 MG/TAB TAB SL PRN (01:05)
[2024-10-16] MEDS ORDERED: ACETAMINOPHEN 325 MG TAB PO PRN (01:05)
[2024-10-16] MEDS ORDERED: POLYETHYLENE (MIRALAX) 17 GM PACK PO PRN (01:05)
[2024-10-16 07:05] LABS: Hematocrit (blood only) 37.7 % (42.0-52.0); Hemoglobin 13.3 g/dl (14.0-18.0); Immature Granulocytes # (auto) 0.01 K/uL (0.01-0.20); Immature Granulocytes % (auto) 0.2 %; Mean Corpuscular Hemoglobin 30.7 pg (25.0-34.0); Mean Corpuscular Volume 87.1 fL (80.0-100.0); Platelet Count 206 K/uL (130-400); RDW Standard Deviation 43.8 fL (36.4-46.3); Red Blood Count 4.33 M/uL (4.70-6.10); White Blood Count 4.41 K/ul (4.8-10.8)
[2024-10-16 07:26] LABS: Anion Gap 7.0 (3-11); Blood Urea Nitrogen 24.0 mg/dl (6-23); Calcium 8.5 mg/dl (8.6-10.3); Carbon Dioxide 22.0 mmol/L (21-32); Chloride 110.0 mmol/L (98-107); Creatinine Clr Calc Pharmacy 59.3 ml/min; Glucose 94.0 mg/dl (70-99(Fasting)); Magnesium 1.8 mg/dl (1.7-2.4); Potassium 4.4 mmol/L (3.5-5.1); Sodium 139.0 mmol/L (136-145)
--- NOTE | 2024-10-16 08:39 | Cardiology Consultation ---
Date of Consultation October 16, 2024 Assessment & Plan (1) Chest pain: (2) History of non-ST elevation myocardial infarction (NSTEMI): (3) ASCVD (arteriosclerotic cardiovascular disease): (4) Ischemic cardiomyopathy: (5) Dyslipidemia, goal LDL below 70: (6) HTN (hypertension): (7) Single kidney: Plan Atypical chest pain. - EKG without acute change. - Troponin negative x 3. - TTE pending. - See documentation by Dr. Howe. Supervising Physician Co-Signing Physician Notes Attending Staff: Patient seen and examined with [facility] Staff Concur with observations and plans I take responsibility for cardiac care delivery by out Team 74 yo man presenting with dyspnea x 48 hrs + Chest Discomfort x 24 hrs (constant) Troponin - 5.8, 6.1, 8.7 ECHOcardiogram: LVEF 50-55%, No WMA, Mild concentric LVH, AI (trace) EKG: No ischemia - normal CXR: atelectasis Events Overnight - 3 second pause - untreated WALTER Hx: * Known CAD * NSTEMI 01/2024 * Stage 3 CKD * Cath in 02/04/2024 - 60% mid RCA, IFR 0.95, LAD 50% sequential lesions, D1 70% thrombotic lesion - EMILY x1; Mild LCX disease * Former Smoker * WALTER - untreated * Single Kidney - renal donor Plans: * Known CAD S/P PCI * Chest pain - pleuritic + positional * Patient was remodeling his kitchen - doing more than usual exertion * Suspect pleural or musculoskeletal process * Chest CT - non-con (single kidney) * ASA + Brilinta - has not missed dosing * Statin - Lipitor 80 mg po per day * LDL 41 in 04/2024 (at goal) * Toprol xl 25 mg po per day - HR 62 BPM * Losartan 25 mg po per day - SBP 137/75 * Creat 1.3, K+ 4.4 * Cardiac Rehab as an outpt * Plans to follow up with [facility] * Outpatient Sleep Study * Please call back with any additional questions * 60 min spent addressing challenges, educating and advancing daily plan of care Raheel Howe History of Present Illness Reason for Consultation: Chest pain Requesting Physician: [facility] Hospitalist Service, Dr. Mcrae Attending Physician: [facility] Hospitalist Service, Dr. Cleve Molina MD History of Present Illness Patient is a 74-year-old male who presented to [facility] ER on October 15, 2024 with complaints of shortness of breath and chest discomfort. The patient notes that his is observed him to be breathing heavier starting Sunday night after dinner. Yesterday he began to feel rough, experiencing a little bit of discomfort across the chest that has been constant since yesterday afternoon. It seems to be a little worse when taking a deep breath. There may be a little bit of tenderness when twisting to the right. Overall symptoms are unlike those associated with the recent NSTEMI. Patient notes cough productive of white phlegm and wonders if there is something going on with his lungs. No recent colds or illnesses. No fevers or chills. No recent medication changes. No missed medications. No tachypalpitations. No PND. No peripheral edema. No abrupt weight change. No dizziness, near syncope, or syncope. No night sweats. No bleeding issues. No rash. no tick bites. Admission EKG without acute change. High-sensitivity troponin negative x 3 (5.8 -> 6.1 -> 8.7). Problem list: January 2024 for NSTEMI status post PCI of the culprit thrombotic stenosis in the large first diagonal branch with a drug-eluting stent Ischemic cardiomyopathy with left ventricular ejection fraction 45 to 49%. Mildly enlarged aortic root and proximal ascending aorta History of left kidney donation, left nephrectomy Stage III chronic kidney disease Hypertension Dyslipidemia Asthma Untreated sleep apnea History of tobacco use Allergies Allergy/AdvReac Type Severity Reaction Status Date / Time Penicillins AdvReac Anaphylaxis Verified 10/15/24 19:11 Home Medications Medication Instructions Recorded Confirmed Type acetaminophen 500 mg tablet 500 mg PO AMHS 02/01/24 10/15/24 History flaxseed oil 1,000 mg capsule 1,000 mg PO AMPM 02/01/24 10/15/24 History multivitamin 1 tab PO DAILY 02/01/24 10/15/24 History omega 5-ebo-zgt-fish oil 1,000 mg 1 cap PO AMPM 02/01/24 10/15/24 History (120 mg-180 mg) capsule (Fish Oil) aspirin 81 mg chewable tablet 81 mg PO QAM 10/15/24 10/15/24 History atorvastatin 80 mg tablet 80 mg PO QAM 10/15/24 10/15/24 History losartan 25 mg tablet 25 mg PO QAM 10/15/24 10/15/24 History nitroglycerin 0.4 mg sublingual 0.4 mg sublingual DIRECTED 10/15/24 10/15/24 History tablet ticagrelor 90 mg tablet (Brilinta) 90 mg PO BID 10/15/24 10/15/24 History Patient History Social History Smoking Status: Former smoker Tobacco Type: Cigarettes Hx Alcohol Use: No Hx Substance Use: No Preferred Language: Romansh Communication Ability: Effective Engineering Operator Required: No Beliefs That Will Affect Care: None Current Living Situation: Spouse Other Information That Helps Us Care for You: No Feels Safe at Home: Yes Safety Concerns: Feels Safe At This Time Assistive Devices: Glasses Review of Systems Review of Systems: Complete Review of Systems is as stated above, negative, or noncontributory. Physical Exam Physical Exam: General: A&Ox3. NAD. HENT: Normocephalic. Atraumatic. Eyes: PER. Conjunctiva pink, sclera clear. Neck: No JVD. Heart: RRR, 70 bpm. No murmur. Lungs: Clear to auscultation. Abdomen: +BS. Extremities: Trace edema. No clubbing. No cyanosis Limited neurological examination is without focal deficits. Pulses: radial=2/4, posterior tibial=2/4. Results & Data Vital Signs (Past 12 Hours) Vital Signs Temp Pulse Pulse Resp BP BP Pulse Ox 10/16/24 08:37 36.5 C 62 18 137/75 95 10/16/24 07:26 73 10/16/24 03:16 36.7 C 64 18 121/79 94 10/16/24 01:39 54 L 10/16/24 01:06 36.3 C L 53 L 18 159/76 H 96 10/16/24 00:44 64 16 137/72 97 10/16/24 00:00 70 16 128/74 96 10/15/24 23:11 66 17 138/79 96 10/15/24 22:00 61 O2 Del Method 10/16/24 08:37 Room Air 10/16/24 07:26 10/16/24 03:16 Room Air 10/16/24 01:39 10/16/24 01:06 Room Air 10/16/24 00:44 Room Air 10/16/24 00:00 Room Air 10/15/24 23:11 Room Air 10/15/24 22:00 Laboratory Results Cardiac Enzymes 10/15/24 10/15/24 10/16/24 Range/Units 17:46 19:00 05:59 AST 23 (13-39) U/L Troponin I High Sens 5.8 6.1 8.7 (0-20) pg/ml Coagulation 10/15/24 Range/Units 17:46 PT 11.2 (9.0-12.0) Seconds APTT 28 (21-31) Seconds CBC 10/15/24 10/16/24 Range/Units 17:46 05:59 WBC 4.73 L 4.41 L (4.8-10.8) K/ul RBC 4.54 L 4.33 L (4.70-6.10) M/uL Hgb 13.5 L 13.3 L (14.0-18.0) g/dl Hct 39.5 L 37.7 L (42.0-52.0) % Plt Count 216 206 (130-400) K/uL Neut # (Auto) 2.64 2.60 (1.40-6.50) K/uL Lymph # (Auto) 1.40 1.30 (1.20-3.40) K/uL [place] # (Auto) 0.41 0.31 (0.11-0.59) K/uL Eos # (Auto) 0.24 0.17 (0.00-0.50) K/uL Baso # (Auto) 0.03 0.02 (0.00-0.20) K/uL Comprehensive Metabolic Panel 10/15/24 10/16/24 Range/Units 17:46 05:59 Sodium 139 139 (136-145) mmol/L Potassium 4.5 4.4 (3.5-5.1) mmol/L Chloride 110 H 110 H (98-107) mmol/L Carbon Dioxide 22 22 (21-32) mmol/L BUN 28 H 24 H (6-23) mg/dl Creatinine 1.59 H 1.33 (0.6-1.4) mg/dl Glucose 98 94 (70-99(Fasting)) mg/dl Calcium 8.9 8.5 L (8.6-10.3) mg/dl AST 23 (13-39) U/L ALT 21 (7-52) U/L Alkaline Phosphatase 40 (34-104) U/L Total Protein 6.8 (6.0-8.3) gm/dl Albumin 3.9 (3.4-5.0) gm/dl Intake and Output 10/15/24 10/16/24 10/16/24 22:59 06:59 14:59 Other: # Unmeasured Voids 4 Weight 101.8 kg 102 kg Weight Measurement Method Standing Scale Diagnostic Findings Resting echocardiography at [facility] in January 2024 revealed a focal regional wall motion abnormality with hypokinesis of the mid and apical posterior lateral wall, EF 45 to 50%, mildly dilated aortic root and ascending aorta, moderate concentric LVH. TTE Interpretation Summary (as per Dr. Sosa): The qualitative LV ejection fraction is 45-49% (mildly reduced). There is a moderate sized apical, posterior, and lateral wall motion abnormality with hypokinesis of the segments. The right ventricular systolic function is mildly reduced . Mild aortic valve regurgitation is present. The aortic root and proximal ascending aorta are mildly enlarged. No prior study for comparison. February 04, 2024 Cardiac Catheterization ([facility]): Coronary disease - hemodynamically significant Mid RCA 60% stenosis. IFR 0.95 (hemodynamically insignificant) Mid to distal LAD has 3 sequential 50% lesions D1 70% stenosis LCX mild disease Intervention Summary: D1 stenosis treated with 1 drug-eluting stent (2.0mm x 22mm [place]) and post-dilated with a 2.25mm NC balloon. Excellent angiographic result with 0% residual stenosis, ANGI 3 flow, and no evidence of dissection or perforation. There is a small jailed D1 sub-branch with 90% stenosis and ANGI III flow. EKG on presentation revealed normal sinus rhythm at 63 bpm with first-degree AV block, without acute ST segment change Telemetry: Sinus in the 70s. 3.3-second pause observed overnight at 2:34 High-sensitivity troponin negative this admission, 5.8 -> 6.1 -> 8.7 pg/mL Chest x-ray interpreted by radiologist revealing mild linear atelectasis in both lower lobes, with suboptimal inspiration noted. PG Care Time/CCT Total # of Minutes Spent Total Time Spent with Patient: Total time spent is greater than 50% in coordination of care (as documented) at patient's floor/unit and/or counseling patient: Coding Level of Care Code 18236 IN/OBS CONSULT LVL 5,80M Diagnoses Chest pain R07.9 History of non-ST elevation myocardial infarction (NSTEMI) I25.2 ASCVD (arteriosclerotic cardiovascular disease) I25.10 Ischemic cardiomyopathy I25.5 Dyslipidemia, goal LDL below 70 E78.5 HTN (hypertension) I10 Single kidney Z90.5
[2024-10-16] MEDS: LOSARTAN POTASSIUM 25 MG TAB PO SCH (08:56)
[2024-10-16] MEDS: MULTIVITAMIN TAB PO SCH (08:56)
[2024-10-16] MEDS: TICAGRELOR 90 MG TAB PO SCH (08:56)
[2024-10-16] MEDS: ATORVASTATIN 40 MG TAB PO SCH (08:56)
[2024-10-16] MEDS: ASPIRIN 81 MG CHEW PO SCH (08:56)
[2024-10-16] MEDS: ACETAMINOPHEN 500 MG TAB PO SCH (08:56)
--- NOTE | 2024-10-16 12:08 | Discharge Summary ---
Date of Service October 16, 2024 Admission HPI Per Admitting Provider 74-year-old male with past medical history significant for mild intermittent asthma, CAD status post stent, CKD stage III, status post left nephrectomy(kidney transplant donation per records), obstructive sleep apnea non compliance per records presents with chest pain. Patient states since last night having cough bringing up whitish phlegm and shortness of breath. And today evening he noticed chest discomfort. No radiation of the discomfort. No sweating or dizziness. With these ongoing symptoms prompted him to come to the ER. Currently resting comfortably. Still has some mild chest discomfort and feels short of breath. Denies any fevers. No headache. No runny nose. No sore throat. Vision is okay. Ambulating okay. Denies any worsening of chest pain or shortness of breath while ambulating. No abdominal pain. Normal bowel and bladder meds. Hemodynamics are okay. In January 2024 patient was admitted for non-ST elevated MD and because of his prior nephrectomy and high risk patient was transferred to [place]. At [place] found to have moderate multiple vessel coronary disease with culprit lesion thrombotic stenosis of large diagonal branch D1 and was status post drug-eluting stent. Past medical history. As mentioned above. Past surgical history. Left heart catheterization. Appendectomy. Left nephrectomy for renal transplant donation. Social history. . Quit smoking 1974. Smoked 2.5 pack a day for 5 years. No alcohol use. No drug use. Family history. Mother had stomach cancer. Father had Alzheimer's disease. Admission Exam Per Admitting Provider General- Not in distress Head- atraumatic Eyes- PERRL. ENT- oropharynx clear Neck- supple, no JVD. Lungs- clear to auscultation no wheezing or crackles Heart- regular rate and rhythm; no murmur, no gallop. Abdomen- normal bowel sounds, soft, nontender, no distension Extremities- no pretibial edema, no erythema seen Neuro- alert, oriented PERRL, no facial palsy; no dysarthria; moves extremities Principal Diagnosis Chest pain ACS rule out Discharge Exam Constitutional: WD/WN, vitals as above, NAD, sitting up in bed, pleasant, conversing easily Respiratory: normal respiratory effort, lungs clear to auscultation, no wheeze, rales, rhonchi. Normal insp/exp effort, no accessory muscle use Cardiovascular: RRR, no murmur, no edema Vessels: no JVD or carotid bruit Chest: normal inspection of chest Abdomen: normal bowel sounds, soft, nontender, no hepatosplenomegaly Musculoskeletal: no cyanosis or clubbing, extremities motor strength 5/5 Skin: no rashes, warm and dry normal turgor Neurologic: PERRL, EOMI, accommodation nl, no face palsy, no dysarthria CN's II- XI intact bilaterally and moves all extremities Psychiatric: A+Ox3, euthymic affect Discharge Data Allergies Allergy/AdvReac Type Severity Reaction Status Date / Time Penicillins AdvReac Anaphylaxis Verified 10/15/24 19:11 Consultations 10/15/24 20:48 ED Decision to Admit Stat Ordered Studies 10/16/24 11:23 CT chest diagnostic wo con Routine Hospital Course (1) Chest pain: 74-year-old male with past medical history significant for mild intermittent asthma, CAD status post stent, CKD stage III, status post left nephrectomy(kidney transplant donation per records), obstructive sleep apnea noncompliance per records presents with chest pain. The chest pain was thought to be pleuritic/positional. EKG showed normal sinus rhythm with no ST or T wave changes. Echocardiogram showed EF of 50 to 55% with grade 1 diastolic dysfunction. Cardiology was consulted for comanagement. Nghia bal underwent CT chest Which did not show any pneumonia; patient was found to have 5 mm right middle lobe nodule; he will need CT chest in 6 months to ensure stability. He was also found to have bilateral enlarged hilar lymph nodes. Patient to follow-up with PCP and obtain CT chest in 6 months. Patient was recommended to continue his home meds and obtain sleep study as outpatient Please note the above document was generated using voice recognition software. It may contain grammatical, syntax or spelling errors. Any formal questions or concerns about the content, text or information contained within the body of this dictation should be directly addressed to the provider for clarification Total Time Total Time Spent Total Time Spent (In Minutes): 45 Total Time Includes: Examination of the Patient, Discharge Planning, Medication Reconciliation, Communication With Other Providers and Other Discharge Plan Discharge Items Patient Disposition: Home - Self-Care Reason For Visit: CHEST PAIN Discharge Diagnosis: Chest pain ACS ruled out Condition on Discharge: Fair Activity: Resume your previous activity Non-emergency contact: Primary Care Provider Call non-emergency contact if: you have any medication questions and your symptoms worsen Follow-up/Referrals: Scott Soto [Primary Care Provider] - 10/21/24 11:30 am Diet: Regular Addtl Attending Provider Instructions: You were admitted to the hospital with chest pain. You underwent evaluation by the lumber tailer during the hospitalization and underwent echocardiogram which showed normal heart function. You are recommended to continue the medication you are taking before. CT of the chest was done; it did not show pneumonia. It showed small 5 mm right middle lobe nodule; you will need CT chest in 6 months to ensure that it is stable. Please discuss with your primary care doctor regarding obtaining CT chest as outpatient in 6 months Follow-up with your primary care doctor and schedule sleep study as outpatient. Pending Studies at Discharge: No Stand-Alone Forms: My [facility], Smoking Cessation Medications and DC Order Prescriptions: Continued acetaminophen 500 mg Tablet 500 mg PO AMHS multivitamin Tablet 1 tab PO DAILY flaxseed oil 1,000 mg Capsule 1,000 mg PO AMPM Rx Instructions: administer with meals omega 1-yei-ecc-fish oil [Fish Oil] 1,000 (120-180) mg Capsule 1 cap PO AMPM atorvastatin 80 mg tablet 80 mg PO QAM losartan 25 mg tablet 25 mg PO QAM nitroglycerin 0.4 mg tablet, sublingual 0.4 mg sublingual DIRECTED aspirin 81 mg tablet,chewable 81 mg PO QAM ticagrelor [Brilinta] 90 mg tablet 90 mg PO BID Discharge Orders: Discharge Order (Routine); Ordered 10/16/24 Ordered By: Cleve Molina Admission Data Admit Date/Time: 10/15/24 22:27 Attending Provider: Cleve Molina Admit Provider: Lorenzo Mcrae Primary Care Provider: Scott Soto Other Providers: Lorenzo Mcrae
--- NOTE | 2024-10-16 15:09 | CT Scan Report ---
CT OF THE CHEST WITHOUT IV CONTRAST CLINICAL HISTORY: Pleuritic chest pain. COMPARISON STUDY: Chest radiographs February 01, 2024 and October 15, 2024. CT DOSE: 751.58 mGy.cm TECHNIQUE: Axial images of the chest were obtained without IV contrast. Images were reviewed in the axial, sagittal, and coronal planes. IV contrast was not administered for this examination. Automat ed exposure control was utilized for the study. A dose lowering technique was utilized adhering to t he principles of ALARA. FINDINGS: No enlarged mediastinal or axillary lymph nodes are present. There are suspected mildly en larged bilateral hilar lymph nodes, suboptimally assessed on unenhanced exam. Inferior right hilar no de on image 137 of 225 measures 2.2 x 1.8 cm. A left hilar lymph node on image 112 measures 2 x 1.2 c m. The heart is mildly enlarged. There is extensive coronary artery calcification. There is no perica rdial effusion. There is mild dilatation of the a sending aorta measuring 4.1 cm at the level of the main pulmonary artery. There is mild elevation of the left hemidiaphragm. There is no consolidation t o suggest pneumonia. No pneumothorax or pleural effusion is present. Multiple old left-sided rib defo rmities are present. 5 mm subpleural right middle lobe nodule on image 165 is likely benign. IMPRESSION: 1. No acute intrathoracic findings. No consolidation to suggest pneumonia. 2. Mild cardiomegaly. Extensive coronary artery calcification. Mild dilatation of the ascending aorta measuring up to 4.1 cm. 3. 5 mm right middle lobe nodule. This is likely benign. A chest CT in 6 months to ensure stability i s recommended. 4. Mildly enlarged bilateral hilar lymph nodes. These are indeterminate and can be assessed on follow -up chest CT to ensure stability. ACT 112: Negative or not required by law. Electronically signed by: Sabas Fulton M.D. 10/16/2024 3:07 PM
[2024-10-16 16:00] VITALS: BP 132/78; PULSE 69; RESP 16; TEMP 97.5; O2SAT 96
--- NOTE | 2024-10-18 05:50 | Electrocardiogram Report ---
Test Reason : Blood Pressure : */* mmHG Vent. Rate : 63 BPM Atrial Rate : 63 BPM P-R Int : 206 ms QRS Dur : 88 ms QT Int : 412 ms P-R-T Axes : 38 -7 39 degrees QTcB Int : 421 ms Normal sinus rhythm Normal ECG When compared with ECG of 01-Feb-2024 05:46, T wave inversion no longer evident in Lateral leads Confirmed by Donaldo Pulido ([id number]) on 10/18/2024 5:49:39 AM Referred By: REFERRED SELF Confirmed By: Donaldo Pulido
== END 2024-10-16 16:23 | disposition home or self-care (01) ==
LOC: 2N 17:26 → ED 17:26 → 2N 10-16 00:44